=== PATIENT | male | born 1965 | race Caucasian/White ===

== ENCOUNTER 2016-05-01 08:32 | Inpatient (IN) | payer MEDICARE, OTHER ==
[~2016-05-01] VITALS: Ht 175.3 cm; Wt 91.5 kg
[~2016-05-01 08:32] MED LIST: CITA40 PO; QUET100 PO
[2016-05-01 08:34] VITALS: BP 171/79; PULSE 110; RESP 16; TEMP 97.9; O2SAT 95
[2016-05-01] MEDS ORDERED: TRAZ50TA12 PO (08:48)
[2016-05-01 09:26] LABS: AUTOMATED NEUTROPHIL # 5.3 TH/MM3 (1.8-7.7); BASOPHIL # 0.1 TH/MM3 (0-0.2); BASOPHIL % 0.8 % (0.0-2.0); EOSINOPHIL % 0.6 % (0.0-4.0); HEMATOCRIT 42.4 % (39.0-51.0); HEMO FLAGS DIFF FINAL; LYMPHOCYTE # 1.7 TH/MM3 (1.0-4.8); MEAN CELL VOLUME 94.7 FL (80.0-100.0); MEAN CORPUSCULAR HGB CONC 35.9 % (32.0-36.0); MONO % 8.5 % (0.0-8.0); NEUT % 68.1 % (16.0-70.0); PLATELET COUNT 184 TH/MM3 (150-450); RED BLOOD COUNT 4.48 MIL/MM3 (4.50-5.90); RED CELL DISTRIBUTION WIDTH 13.2 % (11.6-17.2); WHITE BLOOD COUNT 7.8 TH/MM3 (4.0-11.0)
--- NOTE | 2016-05-01 09:33 | PD ---
HPI Chief Complaint: Psychiatric Symptoms Time Seen by Provider: 09:08 Travel History International Travel<30 days: No Contact w/Intl Traveler<30days: No Traveled to known affect area: No History of Present Illness HPI 50-year-old male presents to the emergency department complaining of increased depression symptoms. States he's been feeling suicidal. He has a plan to shoot himself. He does not have access to firearms. He states he's been feeling worse in the past week or 2. His previous admissions for major depression and a previous diagnosis of schizoaffective disorder. He's been drinking alcohol over the weekend but does not drink daily. He does smoke marijuana. No recent illnesses or injuries.. Her somatic complaints are some dental pain. History Past Medical History Narrative Medical COPD Hypertension GERD Depression, schizoaffective disorder Tetanus Vaccination: Unknown Social History Alcohol Use: Yes (12PK (ONCE EVERY 30 DAY)) Tobacco Use: Yes (1.5 PPK) Allergies-Medications (Allergen,Severity, Reaction): Coded Allergies: Penicillin (Verified Allergy, Severe, CHILDHOOD - DOESN'T REMEMBER, ) *MDRO Multi-Drug Resistant Organism (Verified Adverse Reaction, Unknown, ) MRSA 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 Reported Meds & Prescriptions Reported Meds & Active Scripts Active Reported Trazodone (Trazodone HCl) 50 Mg Tab 50 Mg PO HS Review of Systems Except as stated in HPI: all other systems reviewed are Neg Physical Exam Narrative GENERAL: 50-year-old man, solemn but no acute distress. SKIN: Warm and dry. HEAD: Atraumatic. Normocephalic. CARDIOVASCULAR: Regular rate and rhythm. No murmur appreciated. RESPIRATORY: No accessory muscle use. Clear to auscultation. Breath sounds equal bilaterally. GASTROINTESTINAL: Abdomen soft, non-tender, nondistended. Hepatic and splenic margins not palpable. MUSCULOSKELETAL: No obvious deformities. No edema. NEUROLOGICAL: Awake and alert. No obvious cranial nerve deficits. Motor grossly within normal limits. Normal speech. PSYCHIATRIC: Appropriate mood and affect; insight and judgment normal. Data Data Last Documented VS Vital Signs Date Time Temp Pulse Resp B/P Pulse Ox O2 Delivery O2 Flow Rate FiO2 05/01/16 08:34 97.9 110 16 171/79 95 Room Air Orders Complete Blood Count With Diff (05/01/16 08:57) Comprehensive Metabolic Panel (05/01/16 08:57) Drug Screen, Random Urine (05/01/16 08:57) Psych Screen (05/01/16 08:57) Labs Laboratory Tests Test 05/01/16 09:00 White Blood Count 7.8 TH/MM3 Red Blood Count 4.48 MIL/MM3 Hemoglobin 15.2 GM/DL Hematocrit 42.4 % Mean Corpuscular Volume 94.7 FL Mean Corpuscular Hemoglobin 34.0 PG Mean Corpuscular Hemoglobin 35.9 % Concent Red Cell Distribution Width 13.2 % Platelet Count 184 TH/MM3 Mean Platelet Volume 8.7 FL Neutrophils (%) (Auto) 68.1 % Lymphocytes (%) (Auto) 22.0 % Monocytes (%) (Auto) 8.5 % Eosinophils (%) (Auto) 0.6 % Basophils (%) (Auto) 0.8 % Neutrophils # (Auto) 5.3 TH/MM3 Lymphocytes # (Auto) 1.7 TH/MM3 Monocytes # (Auto) 0.7 TH/MM3 Eosinophils # (Auto) 0.0 TH/MM3 Basophils # (Auto) 0.1 TH/MM3 CBC Comment DIFF FINAL Differential Comment MDM Medical Decision Making Medical Screen Exam Complete: Yes Emergency Medical Condition: Yes Differential Diagnosis Depression, substance abuse, alcohol, other Narrative Course Medical decision-making INITIAL: 50-year-old man presents to the emergency department complaining of increased depression and suicidality. Looks well. Patient is medically clear for psychiatric evaluation. Mental health screening discussed with the patient. Psychiatric screen ordered. Peter Cage MD May 01, 2016 09:32
[2016-05-01 09:39] LABS: ANION GAP 10 MEQ/L (5-15); AST (GOT) 29 U/L (15-37); BICARBONATE 24.3 MEQ/L (21.0-32.0); BLOOD UREA NITROGEN 17 MG/DL (7-18); CHLORIDE 106 MEQ/L (98-107); GLOMERULAR FILTRATION RATE 101 ML/MIN (>89); POTASSIUM 3.9 MEQ/L (3.5-5.1); SODIUM (NA) 140 MEQ/L (136-145)
[2016-05-01 09:43] LABS: ALKALINE PHOSPHATASE 68 U/L (45-117); ALT (GPT) 33 U/L (12-78); TOTAL BILIRUBIN ADULT 0.3 MG/DL (0.2-1.0)
[2016-05-01 09:51] LABS: AMPHETAMINE, URINE NEG (NEG); BARBITURATES, URINE NEG (NEG); COCAINE, URINE NEG (NEG)
[2016-05-01 10:34] VITALS: BP 152/72; PULSE 93; RESP 18; TEMP 98.7; O2SAT 96
[2016-05-01] MEDS ORDERED: ALUMINUM/MAGNESIUM/SIMETH 30 ML CUP PO PRN (13:30)
[2016-05-01] MEDS ORDERED: BENZTROPINE MESYLATE 1 MG TAB PO PRN (13:30)
[2016-05-01] MEDS ORDERED: MAGNESIUM HYDROXIDE SUSP 30 ML CUP PO PRN (13:30)
[2016-05-01] MEDS ORDERED: LORazepam 2 MG/ML VIAL IM PRN ×5 (13:30→13:45)
[2016-05-01] MEDS ORDERED: BENZTROPINE MESYLATE 2 MG/2 ML VIAL IM PRN (13:30)
[2016-05-01] MEDS ORDERED: FLUMAZENIL 0.5 MG/5 ML VIAL IV PUSH PRN (13:45)
[2016-05-01] MEDS ORDERED: LORazepam 2 MG TAB PO PRN (13:45)
[2016-05-01] MEDS ORDERED: LORazepam 1 MG TAB PO PRN (13:45)
[2016-05-01] MEDS ORDERED: cloNIDine HCL 0.1 MG TAB PO PRN (13:45)
--- NOTE | 2016-05-01 14:13 | MH ---
cc: RAJENDRA DEMARCO MD DATE OF ADMISSION: 05/01/2016 ADMISSION DIAGNOSES 1. Schizoaffective disorder, depressive type, acute exacerbation. LEGAL STATUS The patient is capacitated to consent for voluntary psychiatric admission and also to consent for medications. HISTORY OF PRESENT ILLNESS Mr. Lamar is a 50-year-old male with a history of schizoaffective disorder who presents on a voluntary basis to the ED for psychiatric evaluation complaining of increasing depression and suicidal ideation. Reviewing the electronic medical record, I note the patient was admitted most recently under Dr. Meade in January of 2016 and was discharged on Celexa and Seroquel. The patient is seen and examined. Case was discussed with nurse in the J pod. Chart reviewed. On my examination today, the patient reports that after leaving the hospital in January he neglected to follow up with his outpatient psychiatrist. He said he eventually ran out of his psychotropic medications and stopped taking them. He says that in the absence of psychotropics his mood has worsened. "I really let myself sink into a depression. Life's been pretty lonely since she ." He is referring in this case to his who apparently 4 years ago and the anniversary of her passing is in a week. He says he has been eating fairly well but his sleep is somewhat disrupted. He endorses occasional feelings of hopelessness and anhedonia. He endorses suicidal ideation with plan to overdose on medications, although he denies any urge to hurt himself on the inpatient psychiatric unit. He does complain of some auditory hallucinations that he describes as "a whiney pitch, that if I listen long enough I can make out words." He says the words are more like screams and do not say anything specific. No other hallucinatory material. No delusional beliefs. No hypomanic or manic symptoms. The remainder of the psychiatric ROS is negative. PAST PSYCHIATRIC HISTORY The patient reports a prior diagnosis of schizoaffective disorder. He follows at [facility]. His most recent psychiatric admission was the one I had mentioned under Dr. Meade. He endorses a history of suicide attempt by overdose in the past. He says that the Seroquel, Celexa combination worked pretty well but he was not entirely satisfied with the Seroquel and might like to consider an alternative agent. FAMILY HISTORY The patient reports that his mother struggled with some sort of mental illness. Otherwise, the patient denies. CHEMICAL DEPENDENCY HISTORY The patient admits to occasional use of cannabis a couple of times a month. He also smokes a pack a day of cigarettes. He denies any other alcohol or substance use. SOCIAL HISTORY The patient reports that he lives alone. He has two adult children with whom he has some contact. He also has some grandchildren he says. He denies any or legal history. Denies any access to guns or firearms. He is a [employer]. He has some college education. 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 PAST MEDICAL HISTORY The patient reports a history of hypertension for which he takes no medications. REVIEW OF SYSTEMS No reported headache, vision or hearing changes, chest pain, shortness of breath, bowel or bladder issues. No other physical complaints. ALLERGIES Includes allergies to PENICILLIN. PHYSICAL EXAMINATION VITAL SIGNS: Temperature is 98.7, pulse is 93, respirations 18, blood pressure 152/72, pulse oximetry 96% on room air. Physical examination was completed in the emergency room by the ER staff and the patient was medically cleared. On my examination today, the patient appears to be in no acute physical distress. No abnormal motor movements noted. No signs of withdrawal noted. Labs reviewed. The patient's CBC is unremarkable. CMP is unremarkable. Toxicology is positive for cannabinoids and alcohol level was not obtained. Lipid panel and hemoglobin A1c were obtained during the patient's recent psychiatric admission back in January. MENTAL STATUS EXAMINATION The patient is in hospital gown. He is well-groomed. He is awake, alert and oriented x3. No abnormal motor movements noted. Speech is within normal limits for rate, tone and volume. Language and fund of knowledge seem adequate and appropriate for age. Mood is depressed and affect is restricted. Thought process linear. No loosening of associations. No evident delusions. Auditory phenomena as detailed above. No other hallucinations. Endorses suicidal ideation as noted above. No reported urge to hurt himself on the inpatient psychiatric unit. No homicidal ideation. Insight and judgment are fair. ASSESSMENT/PLAN This is a 50-year-old male with a history of schizoaffective disorder, most likely of the depressive type as the patient denies any history of true manic or hypomanic episodes. He presented to the ED voluntarily with complaints of depression and suicidal ideation. The patient echoes these complaints to me and reports that he has been feeling worse in the setting of medication non-adherence. Acute stressor may be the upcoming anniversary of his 's passing. In any event, the patient requires psychiatric admission at this time for safety, observation and stabilization. Admit inpatient. Voluntary status. No need for any updated labs as the patient has had recent hemoglobin A1c and lipid panel. Other laboratories were normal. I will check an alcohol level, but I do not suspect that alcohol is the cause of the patient's elevated blood pressure and heart rate at this time. I will start patient on CIWA with Ativan as a precaution and add thiamine and folate. In place of the patient's Seroquel, as he felt this did not completely resolve his symptoms, I will start the patient on some Latuda with dinner. I have discussed the risks and benefits of this medication with the patient. I will resume the patient's Celexa at a reduced dose given non-adherence. Ativan as needed for anxiety, Cogentin as needed for EPS, trazodone as needed for sleep. Vitals every shift. Counselor to see. Disposition planning. ESTIMATED LENGTH OF STAY 7-9 days. Rajendra Demarco DC/SIERRA /1:27 PM /1:58 PM WILL
[2016-05-01 16:01] VITALS: BP 163/80; PULSE 82; RESP 18; O2SAT 96
[2016-05-01] MEDS: LURASIDONE 40 MG TAB PO SCH (18:00)
[2016-05-01] MEDS: LORazepam 1 MG TAB PO PRN (19:09)
[2016-05-02 06:08] VITALS: BP 139/92; PULSE 74; RESP 18; TEMP 97.9
[2016-05-02] MEDS: REMOVE OLD PATCH T-DERMAL SCH (09:00)
[2016-05-02] MEDS: FOLIC ACID 1 MG TAB PO SCH (09:05)
[2016-05-02] MEDS: CITALOPRAM HYDROBROMIDE 20 MG TAB PO SCH (09:05)
[2016-05-02] MEDS: THIAMINE HCL 100 MG TAB PO SCH (09:05)
[2016-05-02] MEDS: NICOTINE 21 MG/24 HR PATCH T-DERMAL SCH (09:06)
[2016-05-02] MEDS: LORazepam 1 MG TAB PO PRN ×2 (09:09→16:20)
--- NOTE | 2016-05-02 11:57 | HHI.PYPN ---
Subjective Remarks Patient seen and examined with a counselor. Chart reviewed. Case discussed in treatment team. On my examination today, patient reports that his mood is starting to lift somewhat. He slept fairly well overnight. He denies suicidal ideation now but is worried about slipping back into his suicidal ideation in an outpatient setting. No AVH reported. Denies side effects from medications. Review of Systems Other No physical complaints today. Objective Alert: Yes [place]: Person (O x 3) Mood: Depressed Affect: Blunted Memory Intact: Comment (intact on clinical exam) Hallucinations: Other (no AVH) Delusions: No Delusion Type: Other (no delusions) Suicidal: Ideation (no SI) Homicidal: Ideation (no HI) Insight/Judgement Fair Remarks No motoric abnormalities noted. No signs of withdrawal, and patient has required no Ativan for withdrawal. Labs Labs reviewed. No new labs. Vitals/IOs Vital Signs Date Time Temp Pulse Resp B/P Pulse Ox O2 Delivery O2 Flow Rate FiO2 05/02/16 06:08 97.9 74 18 139/92 05/01/16 16:01 96 Room Air Assessment & Plan Problem List: (1) Schizoaffective disorder ICD Code: F25.9 Assessment & Plan Continue Celexa and Latuda as ordered. Plan to make further medication adjustments tomorrow, most likely titrate patient's Latuda. Continue other medications and care as ordered. Justification for Cont. Inpt. Monitoring for any impairments in safety. Risk for decompensation. Discharge Planning Pending psychiatric stabilization Request HC Surrog/Guard Advoc?: No Problem Qualifiers (1) Schizoaffective disorder: Qualified Code: F25.1 - Schizoaffective disorder, depressive type Rajendra Demarco MD May 02, 2016 11:57
[2016-05-02] MEDS: LURASIDONE 40 MG TAB PO SCH (17:57)
[2016-05-02] MEDS: ACETAMINOPHEN 325 MG TAB PO PRN (18:31)
[2016-05-02 20:00] VITALS: BP 125/76; PULSE 85; RESP 18; TEMP 96.8
[2016-05-02] MEDS: traZODone HCL 50 MG TAB PO PRN (21:25)
[2016-05-03 06:08] VITALS: BP 119/62; PULSE 86; RESP 18; TEMP 99; O2SAT 95
[2016-05-03] MEDS: FOLIC ACID 1 MG TAB PO SCH (08:56)
[2016-05-03] MEDS: THIAMINE HCL 100 MG TAB PO SCH (08:56)
[2016-05-03] MEDS: CITALOPRAM HYDROBROMIDE 20 MG TAB PO SCH (08:56)
[2016-05-03] MEDS: NICOTINE 21 MG/24 HR PATCH T-DERMAL SCH (08:56)
[2016-05-03] MEDS: REMOVE OLD PATCH T-DERMAL SCH (08:56)
[2016-05-03] MEDS: LORazepam 1 MG TAB PO PRN ×2 (08:58→16:33)
[2016-05-03] MEDS: ACETAMINOPHEN 325 MG TAB PO PRN ×2 (13:35→21:42)
--- NOTE | 2016-05-03 15:16 | HHI.PYPN ---
Subjective Remarks Patient seen and examined. Chart reviewed. Case discussed with nursing staff. On my examination today, the patient denies any AVH. He has heard about depression support groups and grief counseling that he might attend after discharge and is interested in this. Mood remains somewhat depressed and he continues to describe vague suicidal ideation noting "not being alive seems like a mathematical possibility." No reported urge to hurt himself on the inpatient unit. Says that he stopped taking his medications last time and part because he had several friends that said that he could remain psychiatrically well using just diet and exercise but the primary issue was not following up with outpatient psychiatry. Denies side effects from medications. Agreeable to titration of his Celexa. Review of Systems Other No physical complaints today Objective Alert: Yes [place]: Person (once again O x 3) Mood: Depressed Affect: Blunted Memory Intact: Comment (remains intact) Hallucinations: Other (no AVH) Delusions: No Delusion Type: Other (no evident delusional material) Suicidal: Ideation (vague SI, more like passive thoughts of really. No reported urge to hurt himself on the inpatient psychiatric unit.) Homicidal: Ideation (no HI) Insight/Judgement Fair Remarks No abnormal motor movements noted. Speech within normal limits. Thought process linear. Labs Labs reviewed. No new labs. Vitals/IOs Vital Signs Date Time Temp Pulse Resp B/P Pulse Ox O2 Delivery O2 Flow Rate FiO2 05/03/16 06:08 99.0 86 18 119/62 95 05/01/16 16:01 Room Air Assessment & Plan Problem List: (1) Schizoaffective disorder ICD Code: F25.9 Assessment & Plan Titrate Celexa. Continue what to do as ordered and although we could consider titrating this as well in succeeding days. He has not required any Ativan for withdrawal; to consider discontinuing CIWA protocol tomorrow. Continue other medications include as ordered. Justification for Cont. Inpt. Monitoring for impairments in safety. Medication adjustments. Risk for decompensation. Discharge Planning Plan to refer for grief counseling and depression support group. Pending psychiatric stabilization. Request HC Surrog/Guard Advoc?: No Problem Qualifiers (1) Schizoaffective disorder: Qualified Code: F25.1 - Schizoaffective disorder, depressive type Rajendra Demarco MD May 03, 2016 15:16
[2016-05-03] MEDS: LURASIDONE 40 MG TAB PO SCH (16:33)
[2016-05-03] MEDS: traZODone HCL 50 MG TAB PO PRN (21:41)
[2016-05-04] MEDS: LORazepam 1 MG TAB PO PRN ×3 (05:21→17:39)
[2016-05-04] MEDS: ACETAMINOPHEN 325 MG TAB PO PRN ×2 (05:21→11:13)
[2016-05-04 06:26] VITALS: BP 115/75; PULSE 91; RESP 16; TEMP 97.5
[2016-05-04] MEDS: THIAMINE HCL 100 MG TAB PO SCH (08:51)
[2016-05-04] MEDS: FOLIC ACID 1 MG TAB PO SCH (08:51)
[2016-05-04] MEDS: CITALOPRAM HYDROBROMIDE 20 MG TAB PO SCH (08:53)
[2016-05-04] MEDS: NICOTINE 21 MG/24 HR PATCH T-DERMAL SCH (09:00)
[2016-05-04] MEDS: REMOVE OLD PATCH T-DERMAL SCH (09:00)
--- NOTE | 2016-05-04 16:14 | HHI.PYPN ---
Subjective Remarks Patient seen and examined. Chart reviewed. Case discussed with nursing staff. No problematic behaviors to note. Patient reports that his mood is improving but still remains depressed. He denies any AVH. He is somewhat hopeful about working with his sister to find alternative housing. He denies any side effects from medications. We discuss a plan for titrating his Latuda over the weekend and he is in agreement with this. He requests that his trazodone be scheduled instead of as needed. Review of Systems Other No physical complaints today. No reported symptoms of any withdrawal. Objective Alert: Yes [place]: Person (O x 3) Mood: Depressed (improving) Affect: Blunted (more full and reactive) Memory Intact: Comment (intact) Hallucinations: Other (none) Delusions: No Delusion Type: Other (no delusions) Suicidal: Ideation (no SI) Homicidal: Ideation (no HI) Insight/Judgement Fair Remarks Thought process linear. No signs of withdrawal. Labs Labs reviewed. No new labs. Vitals/IOs Vital Signs Date Time Temp Pulse Resp B/P Pulse Ox O2 Delivery O2 Flow Rate FiO2 05/04/16 06:26 97.5 91 16 115/75 05/03/16 06:08 95 05/01/16 16:01 Room Air Assessment & Plan Problem List: (1) Schizoaffective disorder ICD Code: F25.9 Assessment & Plan Continue current psychotropics as ordered except that I will schedule patient's Latuda. Discontinue CIWA as there is no evidence of withdrawal. Continue other medications and care as ordered. Justification for Cont. Inpt. Monitoring for safety. Risk for decompensation pending psychiatric stabilization. Discharge Planning Pending psychiatric stabilization. Request HC Surrog/Guard Advoc?: No Problem Qualifiers (1) Schizoaffective disorder: Qualified Code: F25.1 - Schizoaffective disorder, depressive type Rajendra Demarco MD May 04, 2016 16:14
[2016-05-04] MEDS: LURASIDONE 40 MG TAB PO SCH (17:33)
[2016-05-04 18:00] VITALS: BP 144/69; PULSE 110; RESP 16; TEMP 97.4; O2SAT 97
[2016-05-05] MEDS: traZODone HCL 50 MG TAB PO PRN ×2 (00:41→19:57)
[2016-05-05] MEDS: LORazepam 1 MG TAB PO PRN ×3 (05:18→19:57)
[2016-05-05 06:00] VITALS: BP 125/73; PULSE 72; RESP 16; TEMP 98
[2016-05-05] MEDS: REMOVE OLD PATCH T-DERMAL SCH (09:00)
[2016-05-05] MEDS: NICOTINE 21 MG/24 HR PATCH T-DERMAL SCH (09:44)
[2016-05-05] MEDS: FOLIC ACID 1 MG TAB PO SCH (09:44)
[2016-05-05] MEDS: THIAMINE HCL 100 MG TAB PO SCH (09:44)
[2016-05-05] MEDS: CITALOPRAM HYDROBROMIDE 20 MG TAB PO SCH (09:44)
[2016-05-05] MEDS: ACETAMINOPHEN 325 MG TAB PO PRN ×2 (13:48→19:58)
--- NOTE | 2016-05-05 14:54 | HHI.PYPN ---
Subjective Remarks Patient seen and examined. Chart reviewed. Case discussed with nursing staff. On my examination today, patient reports that his mood is slowly lifting. No SI or HI voiced. Denies side effects from medications. Patient reports that he has been engaging in the psychotherapeutic activities and groups on the unit and feels that he is obtaining benefit from these. I discuss with patient strategies for making behavioral change including setting concrete, achievable goals and making an action plan to achieve these goals. Review of Systems Other Complains of some dental pain but no other physical complaints Objective Alert: Yes [place]: Person (once again O x 3) Mood: Depressed (continues to improve) Affect: Other (fairly full and reactive) Memory Intact: Comment (intact) Hallucinations: Other (no AVH) Delusions: No Delusion Type: Other (no evident delusions) Suicidal: Ideation (no SI voiced) Homicidal: Ideation (no HI voiced) Insight/Judgement Fair Remarks No motoric abnormalities noted Labs Labs reviewed. No new labs. Vitals/IOs Vital Signs Date Time Temp Pulse Resp B/P Pulse Ox O2 Delivery O2 Flow Rate FiO2 05/05/16 06:00 98.0 72 16 125/73 05/04/16 18:00 97 05/01/16 16:01 Room Air Intake and Output 05/04/16 05/04/16 05/05/16 08:00 16:00 00:00 Intake Total 360 ml Balance 360 ml Assessment & Plan Problem List: (1) Schizoaffective disorder ICD Code: F25.9 Assessment & Plan Continue current psychotropics as ordered. I will add some Orajel for the dental pain. Continue other medications and care as ordered. Justification for Cont. Inpt. Risk for decompensation Discharge Planning Pending psychiatric stabilization Request HC Surrog/Guard Advoc?: No Problem Qualifiers (1) Schizoaffective disorder: Qualified Code: F25.1 - Schizoaffective disorder, depressive type Rajendra Demarco MD May 05, 2016 14:54
[2016-05-05] MEDS: LURASIDONE 40 MG TAB PO SCH (17:22)
[2016-05-05 18:55] VITALS: BP 136/61; PULSE 80; RESP 18; O2SAT 95
[2016-05-06 05:46] VITALS: BP 122/71; PULSE 72; RESP 18; TEMP 97.9
[2016-05-06] MEDS: REMOVE OLD PATCH T-DERMAL SCH (08:51)
[2016-05-06] MEDS: NICOTINE 21 MG/24 HR PATCH T-DERMAL SCH (08:51)
[2016-05-06] MEDS: LORazepam 1 MG TAB PO PRN ×3 (08:52→21:04)
[2016-05-06] MEDS: THIAMINE HCL 100 MG TAB PO SCH (08:52)
[2016-05-06] MEDS: CITALOPRAM HYDROBROMIDE 20 MG TAB PO SCH (08:52)
[2016-05-06] MEDS: FOLIC ACID 1 MG TAB PO SCH (08:52)
[2016-05-06] MEDS: ACETAMINOPHEN 325 MG TAB PO PRN ×3 (08:52→20:26)
[2016-05-06] MEDS: BENZOCAINE 7.5% ORAL GEL 9.4 GM TUBE OROPHARYNG PRN (15:36)
--- NOTE | 2016-05-06 17:57 | HHI.PYPN ---
Subjective Remarks Pt seen and discussed with staff. He reports that today mood is improved and he is having a good day. No SI/HI. Tolerating medications without side effects. He denies SI/HI. Objective Alert: Yes [place]: Person, Place, Date Mood: Calm Affect: Restricted, Other (fairly full and reactive) Memory Intact: Comment (intact) Hallucinations: Other (no AVH) Delusions: No Delusion Type: Other (no evident delusions) Suicidal: Ideation (no SI voiced) Homicidal: Ideation (no HI voiced) Insight/Judgement fair Vitals/IOs Vital Signs Date Time Temp Pulse Resp B/P Pulse Ox O2 Delivery O2 Flow Rate FiO2 05/06/16 05:46 97.9 72 18 122/71 05/05/16 18:55 95 Assessment & Plan Problem List: (1) Schizoaffective disorder ICD Code: F25.9 Assessment & Plan Pt improving. Continue current tx plan. Estimated LOS: days Justification for Cont. Inpt. risk of decompensation Request HC Surrog/Guard Advoc?: No Problem Qualifiers (1) Schizoaffective disorder: Qualified Code: F25.1 - Schizoaffective disorder, depressive type Jael Currie MD May 06, 2016 17:57
[2016-05-06] MEDS: LURASIDONE 40 MG TAB PO SCH (18:02)
[2016-05-06] MEDS: traZODone HCL 50 MG TAB PO PRN (20:25)
[2016-05-06 21:41] VITALS: BP 124/73; PULSE 81; RESP 18; TEMP 98; O2SAT 95
[2016-05-07 06:00] VITALS: BP 139/80; PULSE 71; RESP 18; TEMP 99
[2016-05-07] MEDS: REMOVE OLD PATCH T-DERMAL SCH (08:06)
[2016-05-07] MEDS: FOLIC ACID 1 MG TAB PO SCH (08:06)
[2016-05-07] MEDS: NICOTINE 21 MG/24 HR PATCH T-DERMAL SCH (08:06)
[2016-05-07] MEDS: CITALOPRAM HYDROBROMIDE 20 MG TAB PO SCH (08:06)
[2016-05-07] MEDS: THIAMINE HCL 100 MG TAB PO SCH (08:06)
[2016-05-07] MEDS: LORazepam 1 MG TAB PO PRN ×3 (10:06→21:00)
[2016-05-07] MEDS: ACETAMINOPHEN 325 MG TAB PO PRN (10:07)
[2016-05-07] MEDS: LURASIDONE 40 MG TAB PO SCH (16:55)
--- NOTE | 2016-05-07 19:05 | HHI.PYPN ---
Subjective Remarks Pt seen and discussed with staff. He reports that mood continues to improve and he is having a good day. He is active in milieu activities. Anxiety is decreasing. No medication side effects. Objective Alert: Yes [place]: Person, Place, Date Mood: Calm Affect: Restricted, Other (fairly full and reactive) Memory Intact: Comment (intact) Hallucinations: Other (no AVH) Delusions: No Delusion Type: Other (no evident delusions) Suicidal: Ideation (no SI voiced) Homicidal: Ideation (no HI voiced) Insight/Judgement poor Vitals/IOs Vital Signs Date Time Temp Pulse Resp B/P Pulse Ox O2 Delivery O2 Flow Rate FiO2 05/07/16 06:00 99.0 71 18 139/80 05/06/16 21:41 95 Assessment & Plan Problem List: (1) Schizoaffective disorder ICD Code: F25.9 Assessment & Plan Continue current tx plan. Estimated LOS: days Justification for Cont. Inpt. risk of decopensation Request HC Surrog/Guard Advoc?: No Problem Qualifiers (1) Schizoaffective disorder: Qualified Code: F25.1 - Schizoaffective disorder, depressive type Jael Currie MD May 07, 2016 19:05
[2016-05-07 21:00] VITALS: BP 141/80; PULSE 78; RESP 20; TEMP 97.1; O2SAT 97
[2016-05-07 21:06] VITALS: BP 174/89; PULSE 82; TEMP 98.9; O2SAT 95
[2016-05-07] MEDS: BENZOCAINE 7.5% ORAL GEL 9.4 GM TUBE OROPHARYNG PRN (21:26)
[2016-05-08] MEDS: LORazepam 1 MG TAB PO PRN ×2 (02:39→13:23)
[2016-05-08 05:30] VITALS: BP 118/65; PULSE 60; RESP 18; TEMP 98
[2016-05-08] MEDS: NICOTINE 21 MG/24 HR PATCH T-DERMAL SCH (08:55)
[2016-05-08] MEDS: REMOVE OLD PATCH T-DERMAL SCH (08:55)
[2016-05-08] MEDS: FOLIC ACID 1 MG TAB PO SCH (08:56)
[2016-05-08] MEDS: THIAMINE HCL 100 MG TAB PO SCH (08:56)
[2016-05-08] MEDS: CITALOPRAM HYDROBROMIDE 20 MG TAB PO SCH (08:56)
[2016-05-08] MEDS ORDERED: FOLI1TAB4 PO (15:34)
[2016-05-08] MEDS ORDERED: LURA40 PO (15:34)
[2016-05-08] MEDS ORDERED: VITA100T2 PO (15:34)
[2016-05-08] MEDS ORDERED: CELE20TA PO (15:34)
--- NOTE | 2016-05-08 15:34 | HHI.DS ---
Psychiatry Discharge Summary Inpatient Psychiatric care?: Yes Advance Directive: No Mental Health AdvanceDirective: No Health Care Proxy: No Admission Admission Date May 01, 2016 at 13:23 Admission Diagnosis: (1) Schizoaffective disorder ICD Code: F25.9 Brief History Mr. Lamar is a 50-year-old male with a history of schizoaffective disorder who presents on a voluntary basis to the ED for psychiatric evaluation complaining of increasing depression and suicidal ideation. Reviewing the electronic medical record, I note the patient was admitted most recently under Dr. Meade in January of 2016 and was discharged on Celexa and Seroquel. The patient is seen and examined. Case was discussed with nurse in the J pod. Chart reviewed. On my examination today, the patient reports that after leaving the hospital in January he neglected to follow up with his outpatient psychiatrist. He said he eventually ran out of his psychotropic medications and stopped taking them. He says that in the absence of psychotropics his mood has worsened. "I really let myself sink into a depression. Life's been pretty lonely since she ." He is referring in this case to his who apparently 4 years ago and the anniversary of her passing is in a week. He says he has been eating fairly well but his sleep is somewhat disrupted. He endorses occasional feelings of hopelessness and anhedonia. He endorses suicidal ideation with plan to overdose on medications, although he denies any urge to hurt himself on the inpatient psychiatric unit. He does complain of some auditory hallucinations that he describes as "a whiney pitch, that if I listen long enough I can make out words." He says the words are more like screams and do not say anything specific. No other hallucinatory material. No delusional beliefs. No hypomanic or manic symptoms. The remainder of the psychiatric ROS is negative. Tobacco Use In Past 30 Days: 5 or More Cigarettes/Day Alcohol Use: 4 or More Times Per Week Hospital Course Patient was admitted to a locked, inpatient psychiatric unit. Appropriate precautions were in place throughout patient's hospital stay. Patient was seen and examined daily on the unit by psychiatry and also visited by counselor. Medications were adjusted. Patient tolerated medications well without side effects. Patient had improvement in his presenting psychiatric symptomatology during the course of his hospital stay. There was no evidence of any suicidal or homicidal behavior on the inpatient unit. Patient remained in good behavioral control and was medication compliant. Reviewing the chart I note that the patient is eating and sleeping well. On the day of discharge: Patient seen and examined. Chart reviewed. Case discussed with nursing staff. No problematic behaviors to note. Patient reports that he feels improved today and requests discharge from the inpatient psychiatric unit. Patient feels that his mood is improved versus admission, and he denies any suicidal or homicidal thoughts. He denies any audiovisual hallucinations, and I can elicit no delusional beliefs. He is tolerating psychotropics well without side effects. He has no physical complaints. He has no complaints of withdrawal symptoms. He says that his plan is to get reconnected to Alcoholics Anonymous as a source of support in the community. He is also agreeable to pursuing psychiatric follow-up for medication management on an outpatient basis. Weighing the acute , chronic, and protective factors and based on the available evidence, I painter aircraft to a reasonable degree of medical certainty that the patient is at low imminent risk of harm to self or others from a mental illness as defined under the [place] act and his level of function is adequate for outpatient care. Patient is to be discharged today in stable condition with psychiatric follow-up as arranged by counselor. Patient is also to follow-up with primary care. I have encouraged the patient to remain abstinent from substances of abuse. I counseled the patient to return to the psychiatric emergency room for any concerning psychiatric symptoms as part of a general safety plan. Results Blood Pressure 118 / 65 Vital Signs Date Time Temp Pulse Resp B/P Pulse Ox O2 Delivery O2 Flow Rate FiO2 05/08/16 05:30 98.0 60 18 118/65 05/07/16 21:06 95 Item Value Date Time White Blood Count 7.8 TH/MM3 05/01/16 0900 Hemoglobin 15.2 GM/DL 05/01/16 09 Platelet Count 184 TH/MM3 05/01/16 09 Sodium Level 140 MEQ/L 05/01/16 09 Potassium Level 3.9 MEQ/L 05/01/16 09 Chloride Level 106 MEQ/L 05/01/16 09 Carbon Dioxide Level 24.3 MEQ/L 05/01/16 09 Blood Urea Nitrogen 17 MG/DL 05/01/16 0900 Creatinine 0.81 MG/DL 05/01/16 0900 Aspartate Amino Transf (AST/SGOT) 29 U/L 05/01/16 0900 Alanine Aminotransferase (ALT/SGPT) 33 U/L 05/01/16 0900 Alkaline Phosphatase 68 U/L 05/01/16 0900 Urine Cannabinoids Screen POS H 05/01/16 0900 Ethyl Alcohol Level 43 MG/DL H 05/01/16 0900 Summary of Procedures None done Imaging None done Pending results at discharge: No Medications # of Antipsychotic meds at D/C: 1 Approp Antipsych med options 1 - Minimum of three failed multiple trials of monotherapy. 2 - Documented plan to taper to monotherapy due to previous use of multiple meds OR cross-taper in progress at D/C. 3 - Documentation of augmentation of Clozapine. 4 - Justification other than those listed in allowable values 1-3, document here : Discharge Discharge Date: May 08, 2016 Discharge Diagnosis: (1) Schizoaffective disorder Diagnosis: Principal (stabilized) ICD Code: F25.9 GAF on discharge is 60 Mental Status Exam at Disch Patient is casually dressed. He is well groomed. He is awake and alert and oriented 3. No evidence of delirium. No abnormal motor movements noted. No signs of withdrawal noted. Speech is within normal limits for rate, tone and volume. Language and fund of knowledge seem adequate and appropriate for age. Mood is improved versus admission and affect is full and reactive. Thought process linear. No loosening of associations. No evident delusions. Denies audiovisual hallucinations. Denies suicidal or homicidal ideation. Insight and judgment are fair. Pt Condition on Discharge: Stable Discharge Disposition: Discharge Home Discharge Instructions Diet Instructions: As Tolerated, No Restrictions Activities you can perform: Weight Bearing as Emigdio Scheduled Appointment: as per counselor's notes New Medications: Citalopram (Celexa) 20 Mg Tab 40 MG PO DAILY Mental Health Days 15 Ref 1 TAB Folic Acid (Folate) 1 Mg Tab 1 MG PO DAILY Nutritional Supplement Days 30 Ref 0 TAB Lurasidone (Latuda) 40 Mg Tab 40 MG PO WITH DINNER Mental Health Days 15 Ref 1 TAB Thiamine (Vitamin B-1) 100 Mg Tab 100 MG PO DAILY Nutritional Supplement Days 30 Ref 0 TAB Continued Medications: Trazodone (Trazodone) 50 Mg Tab 50 MG PO HS Control Depression #30 Ref 0 TAB Discharge Time <= 30 minutes Discharge/Advance Care Plan Health Problems: (1) Schizoaffective disorder Goals to promote your health * To prevent worsening of your condition and complications * To maintain your health at the optimal level Directions to meet your goals Take your medications as prescribed Follow your dietary instruction Follow activity as directed Keep your appointments as scheduled Take your immunizations and boosters as scheduled If your symptoms worsen call your PCP, if no PCP go to Urgent Care Center or Emergency Room For 06/11 questions related to your inpatient stay or results of tests pending at discharge, please contact Dr. Rajendra Demarco at Smoking is Dangerous to Your Health. Avoid second hand smoking Problem Qualifiers (1) Schizoaffective disorder: Qualified Code: F25.1 - Schizoaffective disorder, depressive type Rajendra Demarco MD May 08, 2016 15:34
== END 2016-05-08 16:40 | disposition home or self-care (01) | DRG 885 ==
LOC: NEPC 08:32 → NEDA 13:23 → H260 16:49
PROVIDERS: ADMIT Psychiatry & Neurology Psychiatry; ATTEND Psychiatry & Neurology Psychiatry
DX: F25.1 Schizoaffective disorder, depressive type (principal); R45.851 Suicidal ideations; J44.9 Chronic obstructive pulmonary disease, unspecified; I10 Essential (primary) hypertension; Z91.14 Patient's other noncompliance with medication regimen; R45.84 Anhedonia; Z91.5 Personal history of self-harm; F17.210 Nicotine dependence, cigarettes, uncomplicated; Z60.2 Problems related to living alone; Z88.0 Allergy status to penicillin; K08.89 Other specified disorders of teeth and supporting structures; K21.9 Gastro-esophageal reflux disease without esophagitis; F12.90 Cannabis use, unspecified, uncomplicated
CPT/HCPCS: 80053; 80307; 80320; 85025; 99285

== ENCOUNTER 2016-07-10 22:52 | Inpatient (IN) | payer MEDICARE, OTHER ==
[~2016-07-10] VITALS: Ht 170.2 cm; Wt 90.2 kg
[~2016-07-10 22:52] MED LIST changes: +CELE20TA PO; -CITA40 PO; +FOLI1TAB4 PO; +LURA40 PO; -QUET100 PO; +TRAZ50TA12 PO; +VITA100T2 PO
[2016-07-10 22:53] VITALS: BP 163/85; PULSE 78; RESP 16; TEMP 97.5
[2016-07-11] VITALS (8 sets, daily range): BP systolic 132–158; BP diastolic 59–79; PULSE 62–96; RESP 16–20; TEMP 97–98.5; O2SAT 96–100
[2016-07-11] MEDS ORDERED: ACTIVATED CHARCOAL/SORBITOL LIQUID 25 GM/120 ML BTL NG ONE (06:00)
[2016-07-11 06:06] LABS: AUTOMATED NEUTROPHIL # 5.3 TH/MM3 (1.8-7.7); BASOPHIL % 0.5 % (0.0-2.0); EOSINOPHIL # 0.2 TH/MM3 (0-0.4); EOSINOPHIL % 2.8 % (0.0-4.0); HEMATOCRIT 46.4 % (39.0-51.0); HEMO FLAGS DIFF FINAL; LYMPH % 26.2 % (9.0-44.0); LYMPHOCYTE # 2.3 TH/MM3 (1.0-4.8); MEAN CELL VOLUME 95.4 FL (80.0-100.0); MEAN CORPUSCULAR HEMOGLOBIN 34.1 PG (27.0-34.0); MEAN CORPUSCULAR HGB CONC 35.8 % (32.0-36.0); MONO % 9.8 % (0.0-8.0); NEUT % 60.7 % (16.0-70.0); PLATELET COUNT 202 TH/MM3 (150-450); RED BLOOD COUNT 4.86 MIL/MM3 (4.50-5.90); RED CELL DISTRIBUTION WIDTH 13.4 % (11.6-17.2); WHITE BLOOD COUNT 8.7 TH/MM3 (4.0-11.0)
[2016-07-11 06:29] LABS: AMPHETAMINE, URINE NEG (NEG); BARBITURATES, URINE NEG (NEG); COCAINE, URINE NEG (NEG)
[2016-07-11 06:37] LABS: ANION GAP 9 MEQ/L (5-15)
--- NOTE | 2016-07-11 06:38 | PD ---
HPI Chief Complaint: Psychiatric Symptoms Time Seen by Provider: 05:22 Travel History International Travel<30 days: No Contact w/Intl Traveler<30days: No Traveled to known affect area: No History of Present Illness HPI Patient is a 50-year-old male comes in due to suicidal ideation. He has history of depression, and says he has not been taking his medications. He also reports that his girlfriend recently broke up with him. He says he took 12 -14 aspirin tonight and drank some vodka. He complains of some ringing in his years. He denies any other complaints at this time. [facility] Past Medical History Asthma: No Autoimmune Disease: No Bipolar Disorder: Yes Anxiety: Yes Depression: Yes Heart Rhythm Problems: No High Cholesterol: No Chest Pain: No Congestive Heart Failure: No COPD: Yes Diminished Hearing: No Endocrine: No Gastrointestinal Disorders: Yes GERD: Yes Genitourinary: No Hepatitis: No Hiatal Hernia: No Hypertension: Yes Immune Disorder: No Kidney Stones: No Medical other: Yes (GERD) Musculoskeletal: No Neurologic: No Psychiatric: Yes Reproductive: No Respiratory: No Immunizations Current: Yes Renal Failure: No Sickle Cell Disease: No Sleep Apnea: No Thyroid Disease: No Ulcer: No Tetanus Vaccination: Unknown Influenza Vaccination: Yes Past Surgical History Abdominal Surgery: No Body Medical Devices: PIN IN RIGHT ANKLE Cardiac Surgery: No Ear Surgery: No Endocrine Surgery: No Eye Surgery: No Genitourinary Surgery: No Gynecologic Surgery: No Joint Replacement: Yes (R knee) Neurologic Surgery: No Oral Surgery: No Pacemaker: No Thoracic Surgery: No Other Surgery: Yes ( ) Social History Alcohol Use: Yes Tobacco Use: Yes Substance Use: No Allergies-Medications (Allergen,Severity, Reaction): Coded Allergies: Penicillin (Verified Allergy, Severe, CHILDHOOD - DOESN'T REMEMBER, ) *MDRO Multi-Drug Resistant Organism (Verified Adverse Reaction, Unknown, ) MRSA 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 Reported Meds & Prescriptions Reported Meds & Active Scripts Active Folate (Folic Acid) 1 Mg Tab 1 Mg PO DAILY 30 Days Vitamin B-1 (Thiamine HCl) 100 Mg Tab 100 Mg PO DAILY 30 Days Latuda (Lurasidone) 40 Mg Tab 40 Mg PO WITH DINNER 15 Days Celexa (Citalopram Hydrobromide) 20 Mg Tab 40 Mg PO DAILY 15 Days Reported Trazodone (Trazodone HCl) 50 Mg Tab 50 Mg PO HS Review of Systems Except as stated in HPI: all other systems reviewed are Neg General / Constitutional: No: Fever, Chills Eyes: No: Blurred Vision HENT: No: Headaches, Lightheadedness Cardiovascular: No: Chest Pain or Discomfort Respiratory: No: Shortness of Breath Gastrointestinal: No: Nausea, Vomiting, Abdominal Pain Musculoskeletal: No: Myalgias, Edema Skin: No Rash, No Change in Pigmentation Physical Exam Narrative GENERAL: Awake and alert, in no acute distress SKIN: Focused skin assessment warm/dry. HEAD: Atraumatic. Normocephalic. EYES: Pupils equal and round. No scleral icterus. ENT: Mucous membranes pink and moist. NECK: Trachea midline. No JVD. CARDIOVASCULAR: Regular rate and rhythm. No murmur appreciated. RESPIRATORY: No accessory muscle use. Clear to auscultation. Breath sounds equal bilaterally. GASTROINTESTINAL: Abdomen soft, non-tender, nondistended. MUSCULOSKELETAL: No obvious deformities. No clubbing. No cyanosis. No edema. NEUROLOGICAL: Awake and alert. No obvious cranial nerve deficits. Motor grossly within normal limits. Normal speech. PSYCHIATRIC: Appropriate mood and affect; insight and judgment normal. Data Data Last Documented VS Vital Signs Date Time Temp Pulse Resp B/P Pulse Ox O2 Delivery O2 Flow Rate FiO2 07/11/16 07:44 83 16 147/73 100 07/11/16 05:36 98.5 Room Air Orders Complete Blood Count With Diff (07/11/16 05:33) Comprehensive Metabolic Panel (07/11/16 05:33) Psych Screen (07/11/16 05:33) Drug Screen, Random Urine (07/11/16 05:33) Alcohol (Ethanol) (07/11/16 05:33) Salicylates (Aspirin) (07/11/16 05:33) Tylenol (Acetaminophen) (07/11/16 05:33) Electrocardiogram (07/11/16 ) Charcoal Active-Sorbitol Liq (Charcoal A (07/11/16 06:00) Electrocardiogram (07/11/16 07:51) Salicylates (Aspirin) (07/11/16 07:51) Serum Total Iron (Fe) (07/11/16 08:21) Admit Order (Ed Use Only) (07/11/16 09:05) Labs Laboratory Tests Test 07/11/16 07/11/16 07/11/16 05:40 05:45 08:08 White Blood Count 8.7 TH/MM3 Red Blood Count 4.86 MIL/MM3 Hemoglobin 16.6 GM/DL Hematocrit 46.4 % Mean Corpuscular Volume 95.4 FL Mean Corpuscular Hemoglobin 34.1 PG Mean Corpuscular Hemoglobin 35.8 % Concent Red Cell Distribution Width 13.4 % Platelet Count 202 TH/MM3 Mean Platelet Volume 8.9 FL Neutrophils (%) (Auto) 60.7 % Lymphocytes (%) (Auto) 26.2 % Monocytes (%) (Auto) 9.8 % Eosinophils (%) (Auto) 2.8 % Basophils (%) (Auto) 0.5 % Neutrophils # (Auto) 5.3 TH/MM3 Lymphocytes # (Auto) 2.3 TH/MM3 Monocytes # (Auto) 0.9 TH/MM3 Eosinophils # (Auto) 0.2 TH/MM3 Basophils # (Auto) 0.0 TH/MM3 CBC Comment DIFF FINAL Differential Comment Sodium Level 142 MEQ/L Potassium Level 3.5 MEQ/L Chloride Level 106 MEQ/L Carbon Dioxide Level 26.6 MEQ/L Anion Gap 9 MEQ/L Blood Urea Nitrogen 11 MG/DL Creatinine 0.78 MG/DL Estimat Glomerular Filtration 105 ML/MIN Rate Random Glucose 98 MG/DL Calcium Level 9.2 MG/DL Iron Level 86 MCG/DL Total Bilirubin 0.3 MG/DL Aspartate Amino Transf 23 U/L (AST/SGOT) Alanine Aminotransferase 26 U/L (ALT/SGPT) Alkaline Phosphatase 67 U/L Total Protein 7.4 GM/DL Albumin 4.1 GM/DL Salicylates Level 3.6 MG/DL 3.0 MG/DL Acetaminophen Level LESS THAN 2.0 MCG/ML Ethyl Alcohol Level 9 MG/DL Urine Opiates Screen NEG Urine Barbiturates Screen NEG Urine Amphetamines Screen NEG Urine Benzodiazepines Screen NEG Urine Cocaine Screen NEG Urine Cannabinoids Screen NEG MDM Medical Decision Making Medical Screen Exam Complete: Yes Emergency Medical Condition: Yes Medical Record Reviewed: Yes Differential Diagnosis Aspirin toxicity versus Tylenol overdose versus psychosis versus depression Narrative Course Patient is a 50-year-old male comes in complaining of depression and says he took 12-14 aspirin tonight. Exam shows no acute abnormalities. IV established , labs sent. We spoke to poison control who suggests giving activated charcoal even though patient is at least 8 hours out from taking the aspirin. Poison control also suggests repeat aspirin level after 2 hours and repeat EKG. Patient signed out to Dr. Caldera to follow-up repeat aspirin and EKG and disposition appropriately. Condition: Stable Rochelle Brown MD Jul 11, 2016 06:37
[2016-07-11 06:39] LABS: ALKALINE PHOSPHATASE 67 U/L (45-117); ALT (GPT) 26 U/L (12-78); AST (GOT) 23 U/L (15-37); BICARBONATE 26.6 MEQ/L (21.0-32.0); BLOOD UREA NITROGEN 11 MG/DL (7-18); CHLORIDE 106 MEQ/L (98-107); GLOMERULAR FILTRATION RATE 105 ML/MIN (>89); POTASSIUM 3.5 MEQ/L (3.5-5.1); SODIUM (NA) 142 MEQ/L (136-145); TOTAL BILIRUBIN ADULT 0.3 MG/DL (0.2-1.0)
[2016-07-11 06:43] LABS: ACETAMINOPHEN LESS THAN 2.0 MCG/ML (10.0-30.0)
--- NOTE | 2016-07-11 09:14 | PD ---
Physical Exam Date Seen by Provider: Jul 11, 2016 Time Seen by Provider: 07:00 Narrative The patient was signed out to me by Dr. Brown at 7 AM. Sign out was for repeat aspirin level and EKG at 7:40 AM. This was a patient that intentionally overdose on aspirin and the concern was he also took Latuda which can cause EKG changes. Repeat aspirin level was 3.0 which is lower than the original. Repeat EKG did show an slight increase in the QTC from 436 to 449. Given this, he will be admitted to the medical service for cardiac monitoring. The case was discussed with Dr. Vo, [facility], who agreed for the admission. Data Data Last Documented VS Vital Signs Date Time Temp Pulse Resp B/P Pulse Ox O2 Delivery O2 Flow Rate FiO2 07/11/16 07:44 83 16 147/73 100 07/11/16 05:36 98.5 Room Air Orders Complete Blood Count With Diff (07/11/16 05:33) Comprehensive Metabolic Panel (07/11/16 05:33) Psych Screen (07/11/16 05:33) Drug Screen, Random Urine (07/11/16 05:33) Alcohol (Ethanol) (07/11/16 05:33) Salicylates (Aspirin) (07/11/16 05:33) Tylenol (Acetaminophen) (07/11/16 05:33) Electrocardiogram (07/11/16 ) Charcoal Active-Sorbitol Liq (Charcoal A (07/11/16 06:00) Electrocardiogram (07/11/16 07:51) Salicylates (Aspirin) (07/11/16 07:51) Serum Total Iron (Fe) (07/11/16 08:21) Labs Laboratory Tests Test 07/11/16 07/11/16 07/11/16 05:40 05:45 08:08 White Blood Count 8.7 TH/MM3 Red Blood Count 4.86 MIL/MM3 Hemoglobin 16.6 GM/DL Hematocrit 46.4 % Mean Corpuscular Volume 95.4 FL Mean Corpuscular Hemoglobin 34.1 PG Mean Corpuscular Hemoglobin 35.8 % Concent Red Cell Distribution Width 13.4 % Platelet Count 202 TH/MM3 Mean Platelet Volume 8.9 FL Neutrophils (%) (Auto) 60.7 % Lymphocytes (%) (Auto) 26.2 % Monocytes (%) (Auto) 9.8 % Eosinophils (%) (Auto) 2.8 % Basophils (%) (Auto) 0.5 % Neutrophils # (Auto) 5.3 TH/MM3 Lymphocytes # (Auto) 2.3 TH/MM3 Monocytes # (Auto) 0.9 TH/MM3 Eosinophils # (Auto) 0.2 TH/MM3 Basophils # (Auto) 0.0 TH/MM3 CBC Comment DIFF FINAL Differential Comment Sodium Level 142 MEQ/L Potassium Level 3.5 MEQ/L Chloride Level 106 MEQ/L Carbon Dioxide Level 26.6 MEQ/L Anion Gap 9 MEQ/L Blood Urea Nitrogen 11 MG/DL Creatinine 0.78 MG/DL Estimat Glomerular Filtration 105 ML/MIN Rate Random Glucose 98 MG/DL Calcium Level 9.2 MG/DL Total Bilirubin 0.3 MG/DL Aspartate Amino Transf 23 U/L (AST/SGOT) Alanine Aminotransferase 26 U/L (ALT/SGPT) Alkaline Phosphatase 67 U/L Total Protein 7.4 GM/DL Albumin 4.1 GM/DL Salicylates Level 3.6 MG/DL 3.0 MG/DL Acetaminophen Level LESS THAN 2.0 MCG/ML Ethyl Alcohol Level 9 MG/DL Urine Opiates Screen NEG Urine Barbiturates Screen NEG Urine Amphetamines Screen NEG Urine Benzodiazepines Screen NEG Urine Cocaine Screen NEG Urine Cannabinoids Screen NEG MDM Medical Record Reviewed: Yes Supervised Visit with JHON: No Interpretation(s) Repeat EKG at 740 showed an increase in the QTC from 436 to 449. There was still a intraventricular conduction delay. There are old Q waves noted in the leads 23 and aVF. Differential Diagnosis 50-year-old gentleman who intensely overdose on aspirin and possibly Latuda. Poison control was contacted and recommended checking a repeat aspirin level and repeat EKG. The QTC did lengthen from the first to second EKG. Given this , patient be admitted to the medicine service for cardiac monitoring. [facility] the [facility]. Diagnosis Primary Impression: Intentional overdose of drug in tablet form Additional Impressions: prolonged QTC Major depression, recurrent, chronic Schizoaffective disorder HTN (hypertension) Hypertriglyceridemia Tejas Caldera MD Jul 11, 2016 09:14
[2016-07-11] MEDS ORDERED: ONDANSETRON HCL 4 MG/2 ML VIAL IVP PRN (10:30)
[2016-07-11] MEDS ORDERED: SODIUM CHLORIDE 0.9% FLUSH 10 ML FLUSH IV FLUSH PRN (10:30)
[2016-07-11] MEDS: SODIUM CHLOR 0.45% 1000 ML INJ 1,000 ML IV SCH ×2 (11:09→20:13)
--- NOTE | 2016-07-11 16:03 | PD.CONS ---
Provisional Diagnosis Admission Date Jul 11, 2016 at 09:07 [place] I. Major depressive disorder, recurrent, without psychosis,Schizophrenia, alcohol use disorder [place] II. Unspecified personality disorder [place] III. HTN [place] IV. Lack of family and social support [place] V. 40 History of Present Illness Service Psychiatry Consult Requested By Primary Care Physician DO GLORIA Garcia The patient is a 50 years old man, domiciled alone in [place], single, unemployed, supported by [facility], with extensive psychiatric history of schizophrenia, depression, alcohol use disorder, multiple psychiatric hospitalizations, last hospitalization was here at [facility] on April 2016, he was under the care of Dr. Demarco, documentation was reviewed, patient was discharged on Latuda 40 mg twice a day, citalopram 40 mg, Paxil 50 mg, he claims that he has been compliant with medications, he has been following up in a [facility], he has history of suicidal attempts, also self cutting behavior without SI, history of aggressive behavior and incarcerations, medical history of hypertension, who came to the hospital after a suicidal attempt by overdosing with Latuda and aspirin in the context of alcohol intoxication and breaking up with girlfriend. On psychiatric evaluation today patient was found calm, cooperative. He says the last night he had an argument with his girlfriend, she left him and he realized how miserable and cruel is his life and he tried to commit suicide by overdose. Patient says that he has been feeling depressed, he was discharged from the hospital in April 2016, but he hasn't been able to be functional in the society again and has been struggling with depressive symptoms. Patient reports depressed mood, lack of motivation, generalized pessimism, problems sleeping, weight loss, and suicidal ideation with a plan of overdosing. He denies homicidal ideation, he denies visual and auditory hallucinations at this moment, patient is oriented 3, no gross cognitive impairment observed. He reports daily use of alcohol, generally a pint of vodka, he denies withdrawal symptoms at this moment, he denies the use of illicit drugs. Review of Systems Constitutional: DENIES: Diaphoretic episodes, Fatigue, Fever, Weight gain, Weight loss, Chills, Dizziness, Change in appetite, Night Sweats Endocrine: DENIES: Heat/cold intolerance, Polydipsia, Polyuria, Polyphagia Eyes: DENIES: Blurred vision, Diplopia, Eye inflammation, Eye pain, Vision loss , Photosensitivity, Double Vision Ears, nose, mouth, throat: DENIES: Tinnitus, Hearing loss, Vertigo, Nasal discharge, Oral lesions, Throat pain, Hoarseness, Ear Pain, Running Nose, Epistaxis, Sinus Pain, Toothache, Odynophagia Respiratory: DENIES: Apneas, Cough, Snoring, Wheezing, Hemoptysis, Sputum production, Shortness of breath Cardiovascular: DENIES: Chest pain, Palpitations, Syncope, Dyspnea on Exertion , PND, Lower Extremity Edema, Orthopnea, Claudication Gastrointestinal: DENIES: Abdominal pain, Black stools, Bloody stools, Constipation, Diarrhea, Nausea, Vomiting, Difficulty Swallowing, Anorexia Musculoskeletal: DENIES: Joint pain, Muscle aches, Stiffness, Joint Swelling, Back pain, Neck pain Integumentary: DENIES: Abnormal pigmentation, Nail changes, Pruritus, Rash Hematologic/lymphatic: DENIES: Bruising, Lymphadenopathy Immunologic/allergic: DENIES: Eczema, Urticaria Neurologic: DENIES: Abnormal gait, Headache, Localized weakness, Paresthesias, Seizures, Speech Problems, Tremor, Poor Balance Psychiatric: DENIES: Anxiety, Confusion, Mood changes, Depression, Hallucinations, Agitation, Suicidal Ideation, Homicidal Ideation, Delusions Past Family Social History Coded Allergies: Penicillin (Verified Allergy, Severe, CHILDHOOD - DOESN'T REMEMBER, ) *MDRO Multi-Drug Resistant Organism (Verified Adverse Reaction, Unknown, ) MRSA 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 Active Scripts Folic Acid (Folate)1 Mg Tab1 Mg PO DAILY 30 Days Ref 0 Prov:Rajendra Demarco MD 05/08/16 Thiamine (Vitamin B-1)100 Mg Ync038 Mg PO DAILY 30 Days Ref 0 Prov:Rajendra Demarco MD 05/08/16 Lurasidone (Latuda)40 Mg Tab40 Mg PO WITH DINNER 15 Days Ref 1 Prov:Rajendra Demarco MD 05/08/16 Citalopram (Celexa)20 Mg Tab40 Mg PO DAILY 15 Days Ref 1 Prov:Rajendra Demarco MD 05/08/16 Reported Medications Trazodone 50 Mg Tab50 Mg PO HS #30 TAB Ref 0 05/01/16 Current Medications Medications (Trade) Dose Ordered Sig/Geovanni Route Start Time Stop Time Status Last Admin (04/17 NS 1000 ml Inj) 1,000 ml @ 75 mls/hr [id number] IV 07/11/16 11:00 07/11/16 11:09 (NS Flush) 2 ml UNSCH PRN IV FLUSH 07/11/16 10:30 (NS Flush) 2 ml BID IV FLUSH 07/11/16 21:00 (Zofran Inj) 4 mg Q6H PRN IVP 07/11/16 10:30 Family History He denies family history Social History Patient was born and raised in [place], he lives alone in [place], he is single, he has a girlfriend, is unemployed, supported by [facility], his highest level of education is high school Physical Exam Vital Signs Vital Signs Date Time Temp Pulse Resp B/P Pulse Ox O2 Delivery O2 Flow Rate FiO2 07/11/16 07:44 83 16 147/73 100 07/11/16 05:36 98.5 Room Air Mental Status Examination Appearance man, missing several front dental pieces, appears older than his stated age, poor hygiene, calm and cooperative Speech: Unremarkable Orientation: x3 Memory: Unremarkable Thought Process: Logical Thought Content: Unremarkable Hallucination Type: None Attention and Concentration: Good Suicidal Ideation: Yes Previous Suicide Attempts: Yes Homicidal Ideation: No Previous Homicide Attempts: No Judgement: Poor Affect: Sad Mood: Sad Motor Activity: Normal gait Assessment & Plan Problem List: (1) Major depression, recurrent, chronic Assessment & Plan: The patient is a 50 years old man, domiciled alone in [place], single, unemployed, supported by [facility], with extensive psychiatric history of schizophrenia, depression, alcohol use disorder, multiple psychiatric hospitalizations, last hospitalization was here at [facility] on April 2016, he was under the care of Dr. Demarco, documentation was reviewed, patient was discharged on Latuda 40 mg twice a day, citalopram 40 mg, Paxil 50 mg, he claims that he has been compliant with medications, he has been following up in a [facility] act, he has history of suicidal attempts, also self cutting behavior without SI, history of aggressive behavior and incarcerations, medical history of hypertension, who came to the hospital after a suicidal attempt by overdosing with Latuda and aspirin in the context of alcohol intoxication and breaking up with girlfriend. Patient reports active depression and suicidal ideation, he doesn't have any plan at this moment. Patient represents an increased risk of danger to himself and needs psychiatric admission for stabilization and safety. Patient can be transferred to psychiatry once medically clear. No psychotropics recommended at this moment. Extensive psychoeducation, supportive motivation provided. I will follow-up with the floor. ICD Code: F33.9 Assessment & Plan Estimated LOS: days Stuart Workman MD Jul 11, 2016 16:03
--- NOTE | 2016-07-11 19:47 | HHI.HP ---
HPI Service [facility] Hospitalists Primary Care Physician Everton Barrett, Admission Diagnosis intentional overdose, prolonged QTc interval Diagnoses: Chief Complaint: suicidal attempt, medication overdose Travel History International Travel<30 Days: No Contact w/Intl Traveler <30 Da: No Traveled to Known Affected Are: No History of Present Illness This is a 50-year-old male with past medical history significant for depression , schizophrenia, previous suicidal attempts in the past, self cutting behavior, who presents to [facility] complaining of depression, suicidal ideation and having taken 10-14 tablets of aspirin. The patient was seen by the emergency room physicians. Poison control was contacted, the patient was given activated charcoal. Initially the aspirin level was 3.6 and then came down to 3.0. It was noticed in the EKG that the patient had a QTC prolongation that worsened raising the suspicion that the patient might have taken another antipsychotic. The patient had led to the medications that he was taking, however he insists that he did not take anything else other than aspirin and that he also stopped taking his medications 2 weeks ago. The patient otherwise denies any chest pain, short of breath, palpitations, dizziness, nausea, vomiting, headache, fevers, chills, dysuria, abdominal pain, diarrhea, hematemesis, melena. Review of Systems As per history of present illness, other systems review by me and negative Past Family Social History Past Medical History 1. Patient states he has hypertension however this has not been treated. 2. Suicidal ideation. 3. Schizophrenia. 4. Depression. 5. Self cutting behavior. Past Surgical History 1. Right ankle repair surgery in 2009. 2. Right knee arthroscopic surgery in 2010. Reported Medications Folate (Folic Acid) 1 Mg Tab 1 Mg PO DAILY 30 Days Vitamin B-1 (Thiamine HCl) 100 Mg Tab 100 Mg PO DAILY 30 Days Latuda (Lurasidone) 40 Mg Tab 40 Mg PO WITH DINNER 15 Days Celexa (Citalopram Hydrobromide) 20 Mg Tab 40 Mg PO DAILY 15 Days Trazodone (Trazodone HCl) 50 Mg Tab 50 Mg PO HS Allergies: Coded Allergies: Penicillin (Verified Allergy, Severe, CHILDHOOD - DOESN'T REMEMBER, ) *MDRO Multi-Drug Resistant Organism (Verified Adverse Reaction, Unknown, ) MRSA 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 Active Ordered Medications Current Medications Medications (Trade) Dose Ordered Sig/Geovanni Route Start Time Stop Time Status Last Admin (04/17 NS 1000 ml Inj) 1,000 ml @ 75 mls/hr [id number] IV 07/11/16 11:00 07/11/16 11:09 (NS Flush) 2 ml UNSCH PRN IV FLUSH 07/11/16 10:30 (NS Flush) 2 ml BID IV FLUSH 07/11/16 21:00 (Zofran Inj) 4 mg Q6H PRN IVP 07/11/16 10:30 (Flu (Quadrivalent) Vaccine Inj) 0.5 ml ONCE ONCE IM 07/12/16 10:00 07/12/16 10:01 Family History Positive for diabetes and hypertension. Social History Patient smokes one pack per day for the past 30 years. Drinks alcohol occasionally. Denies illicit drug use. The patient is and has 2 children. The patient lives by himself. Physical Exam Vital Signs Vital Signs Date Time Temp Pulse Resp B/P Pulse Ox O2 Delivery O2 Flow Rate FiO2 07/11/16 16:30 97.0 77 18 152/59 98 07/11/16 16:18 81 16 138/72 98 07/11/16 11:15 96 16 132/73 97 07/11/16 07:44 83 16 147/73 100 07/11/16 05:36 98.5 74 20 151/79 98 Room Air 07/11/16 02:13 97.5 80 16 158/67 98 Room Air 07/10/16 22:53 97.5 78 16 163/85 Room Air Physical Exam GENERAL: This is a well-nourished, well-developed patient, in no apparent distress. SKIN: No rashes, ecchymoses or lesions. Cool and dry. HEAD: Atraumatic. Normocephalic. No temporal or scalp tenderness. EYES: Pupils equal round and reactive. Extraocular motions intact. No scleral icterus. No injection or drainage. ENT: Nose without bleeding, purulent drainage or septal hematoma. Throat without erythema, tonsillar hypertrophy or exudate. Uvula midline. Airway patent. NECK: Trachea midline. No JVD or lymphadenopathy. Supple, nontender, no meningeal signs. CARDIOVASCULAR: Regular rate and rhythm without murmurs, gallops, or rubs. RESPIRATORY: Clear to auscultation. Breath sounds equal bilaterally. No wheezes , rales, or rhonchi. GASTROINTESTINAL: Abdomen soft, non-tender, nondistended. No hepato-splenomegaly , or palpable masses. No guarding. MUSCULOSKELETAL: Extremities without clubbing, cyanosis, or edema. No joint tenderness, effusion, or edema noted. No calf tenderness. Negative Homans sign bilaterally. NEUROLOGICAL: Awake and alert. Cranial nerves II through XII intact. Motor and sensory grossly within normal limits. Five out of 5 muscle strength in all muscle groups. Normal speech. Laboratory Laboratory Tests Test 07/11/16 07/11/16 07/11/16 05:40 05:45 08:08 White Blood Count 8.7 Red Blood Count 4.86 Hemoglobin 16.6 Hematocrit 46.4 Mean Corpuscular Volume 95.4 Mean Corpuscular Hemoglobin 34.1 Mean Corpuscular Hemoglobin 35.8 Concent Red Cell Distribution Width 13.4 Platelet Count 202 Mean Platelet Volume 8.9 Neutrophils (%) (Auto) 60.7 Lymphocytes (%) (Auto) 26.2 Monocytes (%) (Auto) 9.8 Eosinophils (%) (Auto) 2.8 Basophils (%) (Auto) 0.5 Neutrophils # (Auto) 5.3 Lymphocytes # (Auto) 2.3 Monocytes # (Auto) 0.9 Eosinophils # (Auto) 0.2 Basophils # (Auto) 0.0 CBC Comment DIFF FINAL Differential Comment Sodium Level 142 Potassium Level 3.5 Chloride Level 106 Carbon Dioxide Level 26.6 Anion Gap 9 Blood Urea Nitrogen 11 Creatinine 0.78 Estimat Glomerular Filtration 105 Rate Random Glucose 98 Calcium Level 9.2 Iron Level 86 Total Bilirubin 0.3 Aspartate Amino Transf 23 (AST/SGOT) Alanine Aminotransferase 26 (ALT/SGPT) Alkaline Phosphatase 67 Total Protein 7.4 Albumin 4.1 Salicylates Level 3.6 3.0 Acetaminophen Level LESS THAN 2.0 Ethyl Alcohol Level 9 Urine Opiates Screen NEG Urine Barbiturates Screen NEG Urine Amphetamines Screen NEG Urine Benzodiazepines Screen NEG Urine Cocaine Screen NEG Urine Cannabinoids Screen NEG Result Diagram: 07/11/16 0540 07/11/16 0540 Assessment and Plan Problem List: (1) Major depression, recurrent, chronic ICD Code: F33.9 Status: Acute (2) Intentional overdose of drug in tablet form ICD Code: T50.902A Status: Acute (3) Schizoaffective disorder ICD Code: F25.9 Status: Chronic (4) HTN (hypertension) ICD Code: I10 Status: Chronic (5) Suicide attempt ICD Code: T14.91 Status: Acute Assessment and Plan His is a 50-year-old male with past medical history of depression, schizophrenia who presents complaining of ingestion of multiple tablets of aspirin. Patient seen in the emergency department and noticed to have EKG with worsening QTC prolongation. Aspirin levels monitored and coming down. Admit the patient to the medical floor, monitor on telemetry. Psychiatric consult Sitter one-to-one Continue to monitor aspirin level Serial EKGs I will start the patient amlodipine 5 mg by mouth daily for hypertension Continue to monitor vital signs. PPI for GI prophylaxis. SCDs for DVT prophylaxis Code Status Full code Discussed Condition With ED physician, patient, RN. Physician Certification 2 Midnight Certification Type: Admission for Inpatient Services Order for Inpatient Services The services are ordered in accordance with Medicare regulations or non- Medicare payer requirements, as applicable. In the case of services not specified as inpatient-only, they are appropriately provided as inpatient services in accordance with the 2-midnight benchmark. Estimated LOS (days): 2 days is the estimated time the patient will need to remain in the hospital, assuming treatment plan goals are met and no additional complications. Post-Hospital Plan: Other (specify) (psych hospital.) Kamron John MD Jul 11, 2016 19:47
[2016-07-11] MEDS: amLODIPine BESYLATE 5 MG TAB PO SCH (20:13)
[2016-07-11] MEDS: SODIUM CHLORIDE 0.9% FLUSH 10 ML FLUSH IV FLUSH SCH (20:13)
--- NOTE | 2016-07-11 21:52 | EKG ---
Date Performed: 07/11/2016 Time Performed: 06:44:06 PTAGE: 50 years EKG: Sinus rhythm INTRAVENTRICULAR CONDUCTION DELAY INFERIOR MYOCARDIAL INFARCTION Since previous tracing, no signific ant change noted ABNORMAL ECG PREVIOUS TRACING : 01/17/2016 04.46 DOCTOR: Anusha Hickman Interpretating Date/Time 07/11/2016 21:50:26
--- NOTE | 2016-07-11 22:44 | EKG ---
Date Performed: 07/11/2016 Time Performed: 08:04:48 PTAGE: 50 years EKG: Sinus rhythm INTRAVENTRICULAR CONDUCTION DELAY LATERAL MYOCARDIAL INFARCTION INFERIOR MYOCARDIAL INFARCTION ABNOR MAL ECG PREVIOUS TRACING : 07/11/2016 06.44 Compared to prior tracing no significant change DOCTOR: Colby Montaño Interpretating Date/Time 07/11/2016 22:44:00
[2016-07-12 00:10] VITALS: BP 144/70; PULSE 65; RESP 18; TEMP 97.6; O2SAT 97
[2016-07-12 04:42] VITALS: BP 138/93; PULSE 77; RESP 18; TEMP 97.7; O2SAT 96
[2016-07-12 07:03] LABS: ALKALINE PHOSPHATASE 66 U/L (45-117); ALT (GPT) 22 U/L (12-78); ANION GAP 8 MEQ/L (5-15); AST (GOT) 16 U/L (15-37); BICARBONATE 27.4 MEQ/L (21.0-32.0); BLOOD UREA NITROGEN 16 MG/DL (7-18); CHLORIDE 106 MEQ/L (98-107); GLOMERULAR FILTRATION RATE 110 ML/MIN (>89); SODIUM (NA) 141 MEQ/L (136-145); TOTAL BILIRUBIN ADULT 0.5 MG/DL (0.2-1.0)
[2016-07-12 07:21] LABS: AUTOMATED NEUTROPHIL # 3.9 TH/MM3 (1.8-7.7); BASOPHIL # 0.1 TH/MM3 (0-0.2); BASOPHIL % 0.9 % (0.0-2.0); EOSINOPHIL # 0.3 TH/MM3 (0-0.4); EOSINOPHIL % 3.6 % (0.0-4.0); HEMATOCRIT 45.7 % (39.0-51.0); HEMO FLAGS DIFF FINAL; LYMPH % 33.5 % (9.0-44.0); LYMPHOCYTE # 2.5 TH/MM3 (1.0-4.8); MEAN CELL VOLUME 96.2 FL (80.0-100.0); MEAN CORPUSCULAR HEMOGLOBIN 32.9 PG (27.0-34.0); MEAN CORPUSCULAR HGB CONC 34.2 % (32.0-36.0); MONO % 9.6 % (0.0-8.0); NEUT % 52.4 % (16.0-70.0); PLATELET COUNT 184 TH/MM3 (150-450); RED BLOOD COUNT 4.75 MIL/MM3 (4.50-5.90); RED CELL DISTRIBUTION WIDTH 13.5 % (11.6-17.2); WHITE BLOOD COUNT 7.5 TH/MM3 (4.0-11.0)
[2016-07-12 08:09] VITALS: BP 128/74; PULSE 69; RESP 18; TEMP 97.3; O2SAT 95
[2016-07-12] MEDS: SODIUM CHLORIDE 0.9% FLUSH 10 ML FLUSH IV FLUSH SCH (09:00)
[2016-07-12] MEDS: amLODIPine BESYLATE 5 MG TAB PO SCH (09:05)
[2016-07-12] MEDS ORDERED: INFLUENZA VIRUS VACCINE (QUADRIVALENT) 0.5 ML SYR IM ONE (10:00)
[2016-07-12 12:12] VITALS: BP 123/62; PULSE 68; RESP 18; TEMP 97.5; O2SAT 94
[2016-07-12] MEDS: SODIUM CHLOR 0.45% 1000 ML INJ 1,000 ML IV SCH (13:40)
[2016-07-12] MEDS ORDERED: AMLO5 PO (15:53)
--- NOTE | 2016-07-12 15:54 | HHI.DCPOC ---
Discharge Care Plan Diagnosis: (1) Intentional overdose of drug in tablet form (2) HTN (hypertension) (3) Suicide attempt (4) Schizoaffective disorder (5) Major depression, recurrent, chronic (6) Prolonged QT interval Goals to Promote Your Health * To prevent worsening of your condition and complications * To maintain your health at the optimal level Directions to Meet Your Goals Take your medications as prescribed Follow your dietary instruction Follow activity as directed Keep your appointments as scheduled Take your immunizations and boosters as scheduled If your symptoms worsen call your PCP, if no PCP go to Urgent Care Center or Emergency Room Smoking is Dangerous to Your Health. Avoid second hand smoke Call the 24-hour hour crisis hotline for domestic abuse at Kamron John MD Jul 12, 2016 15:54
--- NOTE | 2016-07-12 16:05 | HHI.DS ---
Discharge Summary Admission Date Jul 11, 2016 at 09:07 Discharge Date: Jul 12, 2016 Admitting Diagnosis intentional overdose, prolonged QTc interval (1) Major depression, recurrent, chronic ICD Code: F33.9 Diagnosis: Principal (2) Intentional overdose of drug in tablet form ICD Code: T50.902A Diagnosis: Principal (3) Schizoaffective disorder ICD Code: F25.9 (4) HTN (hypertension) ICD Code: I10 Diagnosis: Principal (5) Suicide attempt ICD Code: T14.91 Diagnosis: Principal (6) Prolonged QT interval ICD Code: R94.31 Diagnosis: Principal Procedures none Brief History - From Admission This is a 50-year-old male with past medical history significant for depression , schizophrenia, previous suicidal attempts in the past, self cutting behavior, who presents to [facility] complaining of depression, suicidal ideation and having taken 10-14 tablets of aspirin. The patient was seen by the emergency room physicians. Poison control was contacted, the patient was given activated charcoal. Initially the aspirin level was 3.6 and then came down to 3.0. It was noticed in the EKG that the patient had a QTC prolongation that worsened raising the suspicion that the patient might have taken another antipsychotic. The patient had led to the medications that he was taking, however he insists that he did not take anything else other than aspirin and that he also stopped taking his medications 2 weeks ago. The patient otherwise denies any chest pain, short of breath, palpitations, dizziness, nausea, vomiting, headache, fevers, chills, dysuria, abdominal pain, diarrhea, hematemesis, melena. CBC/BMP: 07/12/16 0606 07/12/16 0606 Significant Findings Laboratory Tests Test 07/11/16 07/12/16 05:40 06:06 Mean Corpuscular Hemoglobin 34.1 PG (27.0-34.0) Monocytes (%) (Auto) 9.8 % (0.0-8.0) 9.6 % (0.0-8.0) Acetaminophen Level LESS THAN 2.0 MCG/ML (10.0-30.0) Ethyl Alcohol Level 9 MG/DL (0-5) Random Glucose 113 MG/DL (74-106) Pt update on day of discharge The patient denies chest pain or shortness of breath. No evidence on telemetry. No palpitations. QTc down to 432. Hospital Course His is a 50-year-old male with past medical history of depression, schizophrenia who presents complaining of ingestion of multiple tablets of aspirin. Patient seen in the emergency department and noticed to have EKG with worsening QTC prolongation. Aspirin levels monitored and coming down. This was then admitted to the medical floor, monitor on telemetry, no arrhythmias were observed. The catheter consulted, the patient meets inpatient criteria to psychiatry floor once her medically. The patient's EKG was serially monitored and QTC went down from 452 - 432. The patient was also found to be hypertensive , amlodipine 5 mg by mouth daily for hypertension was started achieving acceptable control of the blood pressure. The patient is medically cleared to be discharged to the psychiatric unit. SCDs were instituted for DVT prophylaxis. A one-to-one sitter remained next to the patient at all times. Pt Condition on Discharge: Stable Discharge Disposition: Disc to Psych Care Fac Discharge Time: <= 30 minutes Discharge Instructions DIET: Follow Instructions for: Heart Healthy Diet Activities you can perform: Regular-No Restrictions New Medications: Amlodipine (Norvasc) 5 Mg Tab 5 MG PO DAILY Blood Pressure Management #30 TAB Continued Medications: Folic Acid (Folate) 1 Mg Tab 1 MG PO DAILY Nutritional Supplement Days 30 Ref 0 TAB Thiamine (Vitamin B-1) 100 Mg Tab 100 MG PO DAILY Nutritional Supplement Days 30 Ref 0 TAB Discontinued Medications: Citalopram (Celexa) 20 Mg Tab 40 MG PO DAILY Mental Health Days 15 Ref 1 TAB Lurasidone (Latuda) 40 Mg Tab 40 MG PO WITH DINNER Mental Health Days 15 Ref 1 TAB Trazodone (Trazodone) 50 Mg Tab 50 MG PO HS Control Depression #30 Ref 0 TAB Kamron John MD Jul 12, 2016 16:05
[2016-07-12 16:09] VITALS: BP 126/68; PULSE 68; RESP 18; TEMP 97.8; O2SAT 95
--- NOTE | 2016-07-12 19:49 | EKG ---
Date Performed: 07/12/2016 Time Performed: 11:17:27 PTAGE: 50 years EKG: Sinus rhythm INFERIOR MYOCARDIAL INFARCTION , PROBABLY OLD ABNORMAL ECG PREVIOUS TRACING : 07/12/2016 07.50 Compared to prior tracing no significant change DOCTOR: Colby Montaño Interpretating Date/Time 07/12/2016 19:48:32
--- NOTE | 2016-07-12 20:37 | EKG ---
Date Performed: 07/11/2016 Time Performed: 22:45:13 PTAGE: 50 years EKG: Sinus rhythm INTRAVENTRICULAR CONDUCTION DELAY INFEROLATERAL INFARCTION PREVIOUS TRACING : 07/11/2016 08.04 Compared to prior tracing no significant change DOCTOR: Colby Montaño Interpretating Date/Time 07/12/2016 20:35:49
--- NOTE | 2016-07-13 15:06 | EKG ---
Date Performed: 07/12/2016 Time Performed: 16:44:13 PTAGE: 50 years EKG: Sinus rhythm INFERIOR MYOCARDIAL INFARCTION , PROBABLY OLD Since previous tracing, no significant change noted AB NORMAL ECG PREVIOUS TRACING : 07/12/2016 11.17 DOCTOR: Rajendra Mccray Interpretating Date/Time 07/13/2016 15:06:08
== END 2016-07-12 20:30 | DRG 918 ==
LOC: NEPE 22:52 → NEDA 07-11 09:07 → N04B 07-11 16:28
PROVIDERS: ADMIT Hospitalist; ATTEND Hospitalist
DX: T39.012A Poisoning by aspirin, intentional self-harm, initial encounter (principal); F33.9 Major depressive disorder, recurrent, unspecified; I10 Essential (primary) hypertension; T43.592A Poisoning by other antipsychotics and neuroleptics, intentional self-harm, initial encounter; F60.9 Personality disorder, unspecified; F10.129 Alcohol abuse with intoxication, unspecified; F25.9 Schizoaffective disorder, unspecified; I45.81 Long QT syndrome; Y92.9 Unspecified place or not applicable; Z91.5 Personal history of self-harm; Z86.14 Personal history of Methicillin resistant Staphylococcus aureus infection; Z88.0 Allergy status to penicillin; Z23 Encounter for immunization; F17.210 Nicotine dependence, cigarettes, uncomplicated; J44.9 Chronic obstructive pulmonary disease, unspecified; K21.9 Gastro-esophageal reflux disease without esophagitis; E78.1 Pure hyperglyceridemia
CPT/HCPCS: 80053; 80307; 83540; 85025; 90471; 90686; 93005; G0008; Q2038

== ENCOUNTER 2016-07-12 20:49 | Inpatient (IN) | payer MEDICARE, OTHER ==
[~2016-07-12] VITALS: Ht 177.8 cm; Wt 90.6 kg
[~2016-07-12 20:49] MED LIST changes: +AMLO5 PO
[2016-07-12] MEDS: REMOVE OLD NICOTINE PATCH T-DERMAL SCH (21:00)
[2016-07-12] MEDS ORDERED: diphenhydrAMINE HCL 50 MG/ML VIAL - HS PRN IM (21:15)
[2016-07-12] MEDS ORDERED: ALUMINUM/MAGNESIUM/SIMETH 30 ML CUP PO PRN (21:15)
[2016-07-12] MEDS ORDERED: MAGNESIUM HYDROXIDE SUSP 30 ML CUP PO PRN (21:15)
[2016-07-12 21:23] VITALS: BP 141/71; PULSE 77; RESP 18; TEMP 97.1; O2SAT 96
[2016-07-12] MEDS ORDERED: cloNIDine HCL 0.1 MG TAB PO PRN (21:45)
[2016-07-12] MEDS: hydrOXYzine HCL 50 MG TAB PO PRN (22:19)
[2016-07-12] MEDS: diphenhydrAMINE HCL 50 MG CAP - HS PRN PO (22:19)
[2016-07-13 05:17] VITALS: BP 136/75; PULSE 66; RESP 18; TEMP 98; O2SAT 97
[2016-07-13] MEDS: amLODIPine BESYLATE 5 MG TAB PO SCH (08:17)
[2016-07-13] MEDS: NICOTINE 21 MG/24 HR PATCH T-DERMAL SCH (08:17)
[2016-07-13] MEDS ORDERED: NICOTINE 7 MG/24 HR PATCH T-DERMAL SCH (09:00)
[2016-07-13] MEDS ORDERED: INFLUENZA VIRUS VACCINE (QUADRIVALENT) 0.5 ML SYR IM ONE (10:00)
[2016-07-13] MEDS ORDERED: PNEUMOCOCCAL POLYVALENT INJ 25 MCG/0.5 ML SYR IM ONE (10:00)
--- NOTE | 2016-07-13 10:25 | HHI.HP ---
Provisional Diagnosis Admission Date Jul 12, 2016 at 20:50 [place]. Schizoaffective disorder Certification of Person's Competence To Provide Express and Informed Consent I have personally examined Claudy Maciel , a person being served at [facility] on, Jul 13, 2016 10:17. Express and informed consent means consent voluntarily given in writing, by a competent person, after sufficient explanation and disclosure of the subject matter involved to enable the person to make a knowing and willful decision without any element of force, fraud, deceit, duress, or other form of constraint or coercion. This person is 18 years of age or older, is not now known to be incompetent to consent to treatment with a guardian advocate, and does not have a health care surrogate or proxy currently making medical treatment decisions. I have found this person to be one of the following: x] Competent to provide express and informed consent, as defined above, for voluntary admission to this facility and is competent to provide express and informed consent for treatment. He/she has the consistent capacity to make well reasoned, willful, and knowing decisions concerning his or her medical or mental health treatment. The person fully and consistently understands the purpose of the admission for examination/placement and is fully capable of personally exercising all rights assured under [place] [] Incompetent to provide express and informed consent to voluntary admission, and this is incompetent to provide express and informed consent to treatment. The person must be transferred to involuntary status and a petition for a guardian advocate filed with the Circuit Court. [] Refusing to provide express and informed consent to voluntary admission but is competent to provide express and informed consent for treatment. The person must be discharged or transferred to involuntary status. Form shall be completed within 24 hours of a person's arrival at the receiving facility and filed in the clinical record of each person: 1. Admitted on a voluntary basis 2. Permitted to provide express and informed consent to his/her own treatment 3. Allowed to transfer from involuntary to voluntary status 4. Prior to permitting a person to consent to his or her own treatment after having been previously found incompetent to consent to treatment. History of Present Illness Capacity: Has Capacity HPI This is a 50-year-old male admitted after a overdose/suicide attempt. Apparently he and his girlfriend broke up 1 week ago and a few days later he overdosed on unknown medications but this did precipitate a intensive care workup. When transferred to psychiatry and interviewed by this physician the patient does admit to this suicide attempt. He describes multiple symptoms of depression including depressed mood, anhedonia, suicidal thinking, diminished self-esteem, feelings of hopelessness, sleep disturbance, appetite disturbance and difficulty with concentration and memory. He describes a history of schizoaffective disorder and states he has been noncompliant with his medicines for the last couple of weeks but he did better when he was taking them. He is interested in going back on his psychotropic medications which were last prescribed at this facility. He continues to live alone and did consume a pint of alcohol prior to his suicide attempt. He states normally he does not drink alcohol. Review of Systems ROS Limitations: Clinical Condition Except as stated in HPI: all other systems reviewed are Neg Past Psych History Psychological trauma history Denies Violence risk - others (6 mos) Minimal Violence risk - self (6 mos) High. Substance Abuse History Drugs/Alcohol past 12 months Has intermittently used alcohol over the last year, including most recently 1 week ago Past Family Social History Coded Allergies: Penicillin (Verified Allergy, Severe, CHILDHOOD - DOESN'T REMEMBER, ) *MDRO Multi-Drug Resistant Organism (Verified Adverse Reaction, Unknown, ) MRSA 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 Active Scripts Amlodipine (Norvasc)5 Mg Tab5 Mg PO DAILY #30 TAB Prov:Kamron John MD 07/12/16 Folic Acid (Folate)1 Mg Tab1 Mg PO DAILY 30 Days Ref 0 Prov:Rajendra Demarco MD 05/08/16 Thiamine (Vitamin B-1)100 Mg Qrl002 Mg PO DAILY 30 Days Ref 0 Prov:Rajendra Demarco MD 05/08/16 Discontinued Reported Medications Trazodone 50 Mg Tab50 Mg PO HS #30 TAB Ref 0 05/01/16 Discontinued Scripts Lurasidone (Latuda)40 Mg Tab40 Mg PO WITH DINNER 15 Days Ref 1 Prov:Rajendra Demarco MD 05/08/16 Citalopram (Celexa)20 Mg Tab40 Mg PO DAILY 15 Days Ref 1 Prov:Rajendra Demarco MD 05/08/16 Current Medications Medications (Trade) Dose Ordered Sig/Geovanni Route Start Time Stop Time Status Last Admin (Atarax) 50 mg Q6H PRN PO 07/12/16 21:15 07/12/16 22:19 (Benadryl) 50 mg HS PRN PO 07/12/16 21:15 07/12/16 22:19 (Benadryl Inj) 50 mg HS PRN IM 07/12/16 21:15 (Tylenol) 650 mg Q4H PRN PO 07/12/16 21:15 (Milk Of Magnesia Liq) 30 ml DAILY PRN PO 07/12/16 21:15 (Mag-Al Plus Susp Liq) 30 ml Q6H PRN PO 07/12/16 21:15 Miscellaneous Information 1 HS T-DERMAL 07/12/16 21:00 (Norvasc) 5 mg DAILY PO 07/13/16 09:00 07/13/16 08:17 (Habitrol 21 Mg Patch.24 Hr) 1 patch DAILY T-DERMAL 07/13/16 09:00 07/13/16 08:17 (Catapres) 0.1 mg Q6H PRN PO 07/12/16 21:45 Family History Significant for mood disorders. Social History Lives alone. 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 He receives Social Security disability for his mental disorder. Recent loss of a fci relationship. Patient's Strengths (min. 2) Verbal and resilience. Physical Exam GENERAL: SKIN: Warm and dry. HEAD: Normocephalic. EYES: No scleral icterus. No injection or drainage. NECK: Supple, trachea midline. No JVD or lymphadenopathy. CARDIOVASCULAR: Regular rate and rhythm without murmurs, gallops, or rubs. RESPIRATORY: Breath sounds equal bilaterally. No accessory muscle use. GASTROINTESTINAL: Abdomen soft, non-tender, nondistended. MUSCULOSKELETAL: No cyanosis, or edema. BACK: Nontender without obvious deformity. No CVA tenderness. Vital Signs Vital Signs Date Time Temp Pulse Resp B/P Pulse Ox O2 Delivery O2 Flow Rate FiO2 07/13/16 05:17 98.0 66 18 136/75 97 Mental Status Examination Speech: Unremarkable Orientation: x3 Memory: Unremarkable Thought Process: Organized, Goal Directed Thought Content: Unremarkable Hallucination Type: None Attention and Concentration: Good Suicidal Ideation: Yes Previous Suicide Attempts: Yes Homicidal Ideation: Yes Previous Homicide Attempts: No Insight: Fair Judgement: Impulsive Affect: Good, Sad Affect if Inappropriate: Blunt Mood: Sad Motor Activity: Normal gait Assessment & Plan Problem List: (1) Schizoaffective disorder ICD Code: F25.9 Assessment & Plan Estimated LOS: 5 days patient will be observed and evaluated for ongoing symptoms of depression. This physician discussed placing the patient back on his previous psychotropic medicines which he said were helpful to him. This will take place over the next 2-3 days. Patient is willing to cooperate with treatment and participate in individual as well as group therapies. However, at this time he represents a significant risk to self-harm he continues to feel hopeless and suicidal. Problem Qualifiers (1) Schizoaffective disorder: Qualified Code: F25.0 - Schizoaffective disorder, bipolar type Jp Pablo MD Jul 13, 2016 10:25
[2016-07-13] MEDS: ACETAMINOPHEN 325 MG TAB PO PRN (13:33)
[2016-07-13] MEDS: hydrOXYzine HCL 50 MG TAB PO PRN ×2 (13:33→20:04)
--- NOTE | 2016-07-13 15:19 | PD.CONS ---
HPI Service [facility] Consult Requested By Psychiatry team Reason for Consult Medical management hypertension Primary Care Physician Everton Barrett DO Diagnoses: History of Present Illness Patient is a 50-year-old male with primary medical history of hypertension, depression, schizophrenia, previous suicidal attempts in the past , self cutting behavior who came in to the inpatient setting for complaints of depression, suicidal ideation and took 10-14 tablets of aspirin. Poison control was contacted, the patient was given activated charcoal. Initially Aspirin level was 3.6, repeat was 3.0. EKG with QTC prolongation raising suspicion that patient might have taken another medication. Serial EKGs with QT prolongation trending down. Patient was also found to be hypertensive and started on Norvasc 5 mg daily. His medical condition has improved. He is now admitted to inpatient psychiatry unit for further evaluation of his suicidal ideation, depression, schizophrenia. Consulted for continued medical management. Patient seen today. Reports he's doing well. Denies any suicidal ideation, homicidal ideation. Denies pain and discomfort. Denies SOB/ dyspnea. Denies chest pain, palpitations, headaches, dizziness. Denies fevers, chills, n/v/d. Review of Systems Except as stated in HPI: all other systems reviewed are Neg Past Family Social History Allergies: Coded Allergies: Penicillin (Verified Allergy, Severe, CHILDHOOD - DOESN'T REMEMBER, ) 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; (arm) - 12/2014 Past Medical History 1. Patient states he has hypertension however this has not been treated. 2. Suicidal ideation. 3. Schizophrenia. 4. Depression. 5. Self cutting behavior. Past Surgical History 1. Right ankle repair surgery in 2009. 2. Right knee arthroscopic surgery in 2010 Reported Medications Folate (Folic Acid) 1 Mg Tab 1 Mg PO DAILY 30 Days Vitamin B-1 (Thiamine HCl) 100 Mg Tab 100 Mg PO DAILY 30 Days Latuda (Lurasidone) 40 Mg Tab 40 Mg PO WITH DINNER 15 Days Celexa (Citalopram Hydrobromide) 20 Mg Tab 40 Mg PO DAILY 15 Days Trazodone (Trazodone HCl) 50 Mg Tab 50 Mg PO HS Active Ordered Medications Current Medications Medications (Trade) Dose Ordered Sig/Geovanni Route Start Time Stop Time Status Last Admin (Atarax) 50 mg Q6H PRN PO 07/12/16 21:15 07/13/16 13:33 (Benadryl) 50 mg HS PRN PO 07/12/16 21:15 07/12/16 22:19 (Benadryl Inj) 50 mg HS PRN IM 07/12/16 21:15 (Tylenol) 650 mg Q4H PRN PO 07/12/16 21:15 07/13/16 13:33 (Milk Of Magnesia Liq) 30 ml DAILY PRN PO 07/12/16 21:15 (Mag-Al Plus Susp Liq) 30 ml Q6H PRN PO 07/12/16 21:15 Miscellaneous Information 1 HS T-DERMAL 07/12/16 21:00 (Norvasc) 5 mg DAILY PO 07/13/16 09:00 07/13/16 08:17 (Habitrol 21 Mg Patch.24 Hr) 1 patch DAILY T-DERMAL 07/13/16 09:00 07/13/16 08:17 (Catapres) 0.1 mg Q6H PRN PO 07/12/16 21:45 (Abilify) 2 mg HS PO 07/13/16 21:00 (PROzac) 10 mg DAILY PO 07/14/16 09:00 Family History Family history of diabetes and hypertension Social History The patient is and has 2 children. The patient lives by himself. Patient smokes one pack per day for the past 30 years. Drinks alcohol occasionally. Denies illicit drug use. Physical Exam Vital Signs Vital Signs Date Time Temp Pulse Resp B/P Pulse Ox O2 Delivery O2 Flow Rate FiO2 07/13/16 05:17 98.0 66 18 136/75 97 07/12/16 21:23 97.1 77 18 141/71 96 Physical Exam GENERAL: This is a well-nourished, well-developed patient, in no apparent distress. SKIN: No rashes, ecchymoses or lesions. Cool and dry. HEAD: Atraumatic. Normocephalic. No temporal or scalp tenderness. EYES: Pupils equal round and reactive. Extraocular motions intact. No scleral icterus. No injection or drainage. ENT: Nose without bleeding. Throat without erythema. Uvula midline. Airway patent. NECK: Trachea midline. No JVD or lymphadenopathy. Supple, nontender, no meningeal signs. CARDIOVASCULAR: Regular rate and rhythm without murmurs, gallops, or rubs. RESPIRATORY: Clear to auscultation. Breath sounds equal bilaterally. No wheezes , rales, or rhonchi. GASTROINTESTINAL: Abdomen soft, non-tender, nondistended. No hepato-splenomegaly , or palpable masses. No guarding. MUSCULOSKELETAL: Extremities without clubbing, cyanosis, or edema. No joint tenderness, effusion, or edema noted. NEUROLOGICAL: Awake and alert. Motor and sensory grossly within normal limits. Normal speech. Assessment and Plan Problem List: (1) Prolonged QT interval ICD Code: R94.31 Status: Acute (2) HTN (hypertension) ICD Code: I10 Status: Chronic (3) Intentional overdose of drug in tablet form ICD Code: T50.902A Status: Acute (4) Suicide attempt ICD Code: T14.91 Status: Acute (5) Schizoaffective disorder ICD Code: F25.9 Status: Chronic Assessment and Plan Patient is a 50-year-old male with primary medical history of hypertension, depression, schizophrenia, previous suicidal attempts in the past , self cutting behavior who came in to the inpatient setting for complaints of depression, suicidal ideation and took 10-14 tablets of aspirin. Poison control was contacted, the patient was given activated charcoal. Initially Aspirin level was 3.6, repeat was 3.0. EKG with QTC prolongation raising suspicion that patient might have taken another medication. Serial EKGs with QT prolongation trending down. Patient was also found to be hypertensive and started on Norvasc 5 mg daily. His medical condition has improved. He is now admitted to inpatient psychiatry unit for further evaluation of his suicidal ideation, depression, schizophrenia. Consulted for continued medical management. Suicidal ideation, depression, schizophrenia - Managed by psychiatry team Aspirin overdose QT prolongation - Salicylate level 3.6 --> 3.0 - Serial EKGs improved QT prolongation, sinus rhythm HTN - Continue with Norvasc 5 mg daily - Monitor BP trend Tobacco abuse - counseled. Discussed risks and fatal consequences of continued tobacco use. - Continue nicotine patch use DVT prop ambulatory Discussed with patient, nursing Thank you for this consultation. Stable from Hospitalist standpoint. We will sign off. Reconsult as needed. Written by Kristina Ramirez, acting as scribe for Dr. Walls on 07/13/16 at 15: 18. All or portions of this note were transcribed by scribe [Kristina Ramirez]. I, Dr. Tricia Walls personally performed the history, physical exam, and medical decision making; and confirmed the accuracy of the information in the transcribed note. Authenticated by Dr. Tricia Walls on 07/13/16 at 1530. Code Status Full code Discussed Condition With Patient, nursing Kristina Bedolla Jul 13, 2016 15:19 Tricia Walls MD Jul 13, 2016 21:01
[2016-07-13] MEDS: ARIPiprazole 2 MG TAB PO SCH (20:04)
[2016-07-13] MEDS: REMOVE OLD NICOTINE PATCH T-DERMAL SCH (21:00)
[2016-07-13] MEDS: diphenhydrAMINE HCL 50 MG CAP - HS PRN PO (21:33)
[2016-07-13 21:39] VITALS: BP 145/92; PULSE 90; RESP 18; TEMP 97.8; O2SAT 98
[2016-07-14 06:11] VITALS: BP 140/65; PULSE 73; RESP 18; TEMP 98.8; O2SAT 98
[2016-07-14] MEDS: FLUoxetine HCL 10 MG CAP PO SCH (08:54)
[2016-07-14] MEDS: amLODIPine BESYLATE 5 MG TAB PO SCH (08:54)
[2016-07-14] MEDS: NICOTINE 21 MG/24 HR PATCH T-DERMAL SCH (08:55)
[2016-07-14] MEDS: ACETAMINOPHEN 325 MG TAB PO PRN (10:54)
[2016-07-14] MEDS: hydrOXYzine HCL 50 MG TAB PO PRN ×2 (10:54→17:06)
--- NOTE | 2016-07-14 13:51 | HHI.PYPN ---
Subjective Remarks Patient seen in coverage for Dr. Pablo. Chart reviewed. Case discussed with nursing staff. No behavioral problems noted. On my examination today, the patient reports that his mood remains depressed but is slowly improving. He continues to complain of "bouts of sadness." Denies any ongoing suicidal ideation. No evidence of psychosis. Denies side effects from medications and is generally pleased with his psychotropic medication regimen. Review of Systems Except as stated in HPI: all other systems reviewed are Neg Objective Alert: Yes [place]: Person (oriented 3) Mood: Depressed Affect: Blunted Memory Intact: Comment (intact on clinical examination) Hallucinations: Other (no audiovisual hallucinations) Delusions: No Delusion Type: Other (no delusions elicited) Suicidal: Ideation (denies suicidal ideation) Homicidal: Ideation (no homicidal ideation) Insight/Judgement Fair Remarks No motoric abnormalities noted. Speech is within normal limits for rate, tone and volume. Grooming and hygiene fair. Labs Laboratories from preceding medical hospitalization reviewed. Vitals/IOs Vital Signs Date Time Temp Pulse Resp B/P Pulse Ox O2 Delivery O2 Flow Rate FiO2 07/14/16 06:11 98.8 73 18 140/65 98 Assessment & Plan Problem List: (1) Schizoaffective disorder ICD Code: F25.9 Assessment & Plan Continue Prozac and Abilify as ordered. Continue other medications and care as ordered. Hospitalist senior treasury consultant input noted and appreciated. Justification for Cont. Inpt. Monitoring for impairments in safety. Medication changes. Risk for decompensation in a less restrictive setting. Discharge Planning Pending psychiatric stabilization. Per Dr. Pablo. Request HC Surrog/Guard Advoc?: No Problem Qualifiers (1) Schizoaffective disorder: Qualified Code: F25.0 - Schizoaffective disorder, bipolar type Rajendra Demarco MD Jul 14, 2016 13:51
[2016-07-14 19:15] VITALS: BP 117/75; PULSE 95; RESP 19; TEMP 97.7; O2SAT 97
[2016-07-14] MEDS: REMOVE OLD NICOTINE PATCH T-DERMAL SCH (20:32)
[2016-07-14] MEDS: ARIPiprazole 2 MG TAB PO SCH (20:33)
[2016-07-14] MEDS: diphenhydrAMINE HCL 50 MG CAP - HS PRN PO (20:55)
[2016-07-15 06:17] VITALS: BP 132/70; PULSE 70; RESP 18; TEMP 97.6; O2SAT 98
[2016-07-15] MEDS: amLODIPine BESYLATE 5 MG TAB PO SCH (09:20)
[2016-07-15] MEDS: FLUoxetine HCL 10 MG CAP PO SCH (09:20)
[2016-07-15] MEDS: NICOTINE 21 MG/24 HR PATCH T-DERMAL SCH (09:20)
[2016-07-15] MEDS: hydrOXYzine HCL 50 MG TAB PO PRN ×2 (10:13→20:13)
[2016-07-15] MEDS: ACETAMINOPHEN 325 MG TAB PO PRN ×3 (11:21→20:13)
--- NOTE | 2016-07-15 18:01 | HHI.PYPN ---
Subjective Remarks Pt seen and discussed with staff. Pt reports that his mood is depressed, but symptoms are improving. SI has decreased in frequency and intensity. No behavioral problems on unit. No medication side effects. Review of Systems Psychiatric: COMPLAINS OF: Depression Objective Alert: Yes [place]: Person, Place, Date, Situation Mood: Depressed Affect: Restricted Memory Intact: Comment (intact on clinical examination) Hallucinations: Other (no audiovisual hallucinations) Delusions: No Delusion Type: Other (no delusions elicited) Suicidal: Ideation (reports significantly decreaed) Homicidal: Ideation (no homicidal ideation) Insight/Judgement poor Vitals/IOs Vital Signs Date Time Temp Pulse Resp B/P Pulse Ox O2 Delivery O2 Flow Rate FiO2 07/15/16 06:17 97.6 70 18 132/70 98 Assessment & Plan Problem List: (1) Schizoaffective disorder ICD Code: F25.9 Assessment & Plan Continue current tx plan. Justification for Cont. Inpt. observing for safety Request HC Surrog/Guard Advoc?: No Problem Qualifiers (1) Schizoaffective disorder: Qualified Code: F25.0 - Schizoaffective disorder, bipolar type Jael Currie MD Jul 15, 2016 18:01
[2016-07-15] MEDS: REMOVE OLD NICOTINE PATCH T-DERMAL SCH (19:44)
[2016-07-15 20:14] VITALS: BP 120/69; PULSE 82; RESP 18; TEMP 97.8; O2SAT 98
[2016-07-15] MEDS: ARIPiprazole 2 MG TAB PO SCH (21:21)
[2016-07-15] MEDS: diphenhydrAMINE HCL 50 MG CAP - HS PRN PO (22:31)
[2016-07-16] MEDS: ACETAMINOPHEN 325 MG TAB PO PRN ×3 (03:30→21:36)
[2016-07-16 06:00] VITALS: BP 124/76; PULSE 77; RESP 18; TEMP 98; O2SAT 97
[2016-07-16] MEDS: NICOTINE 21 MG/24 HR PATCH T-DERMAL SCH (09:00)
[2016-07-16] MEDS: amLODIPine BESYLATE 5 MG TAB PO SCH (09:00)
[2016-07-16] MEDS: FLUoxetine HCL 10 MG CAP PO SCH (09:38)
[2016-07-16] MEDS: hydrOXYzine HCL 50 MG TAB PO PRN (11:55)
[2016-07-16 17:30] VITALS: BP 126/70; PULSE 70; RESP 18; TEMP 97.8; O2SAT 99
--- NOTE | 2016-07-16 18:00 | HHI.PYPN ---
Subjective Remarks Pt seen and discussed with staff. Pt reports that his mood continues to improve and depression has decreased. He denies SI/HI. He is compliant with medications and tolerating without side effects. Objective Alert: Yes [place]: Person, Place, Date, Situation Mood: Depressed Affect: Restricted Memory Intact: Comment (intact on clinical examination) Hallucinations: Other (no audiovisual hallucinations) Delusions: No Delusion Type: Other (no delusions elicited) Suicidal: Ideation (reports significantly decreaed) Homicidal: Ideation (no homicidal ideation) Insight/Judgement fair Vitals/IOs Vital Signs Date Time Temp Pulse Resp B/P Pulse Ox O2 Delivery O2 Flow Rate FiO2 07/16/16 17:30 97.8 70 18 126/70 99 Assessment & Plan Problem List: (1) Schizoaffective disorder ICD Code: F25.9 Assessment & Plan Continue current tx plan. Estimated LOS: days Justification for Cont. Inpt. risk of decompensation Request HC Surrog/Guard Advoc?: No Problem Qualifiers (1) Schizoaffective disorder: Qualified Code: F25.0 - Schizoaffective disorder, bipolar type Jael Currie MD Jul 16, 2016 18:00
[2016-07-16] MEDS: REMOVE OLD NICOTINE PATCH T-DERMAL SCH (21:00)
[2016-07-16] MEDS: diphenhydrAMINE HCL 50 MG CAP - HS PRN PO (21:35)
[2016-07-16] MEDS: ARIPiprazole 2 MG TAB PO SCH (21:35)
[2016-07-17 06:02] VITALS: BP 125/71; PULSE 76; RESP 17; TEMP 97.6; O2SAT 93
[2016-07-17] MEDS: amLODIPine BESYLATE 5 MG TAB PO SCH (08:46)
[2016-07-17] MEDS: NICOTINE 21 MG/24 HR PATCH T-DERMAL SCH (08:46)
[2016-07-17] MEDS: FLUoxetine HCL 10 MG CAP PO SCH (08:46)
[2016-07-17] MEDS: hydrOXYzine HCL 50 MG TAB PO PRN (10:24)
[2016-07-17] MEDS: ACETAMINOPHEN 325 MG TAB PO PRN (12:47)
--- NOTE | 2016-07-17 14:25 | HHI.DS ---
Psychiatry Discharge Summary Inpatient Psychiatric care?: Yes Advance Directive: No Reason Not Provided: Due to Patient Condition Mental Health AdvanceDirective: No Health Care Proxy: No Admission Admission Date Jul 12, 2016 at 20:50 Admission Diagnosis: (1) Schizoaffective disorder ICD Code: F25.9 Brief History This is a 50-year-old male admitted after a overdose/suicide attempt. Apparently he and his girlfriend broke up 1 week ago and a few days later he overdosed on unknown medications but this did precipitate a intensive care workup. When transferred to psychiatry and interviewed by this physician the patient does admit to this suicide attempt. He describes multiple symptoms of depression including depressed mood, anhedonia, suicidal thinking, diminished self-esteem, feelings of hopelessness, sleep disturbance, appetite disturbance and difficulty with concentration and memory. He describes a history of schizoaffective disorder and states he has been noncompliant with his medicines for the last couple of weeks but he did better when he was taking them. He is interested in going back on his psychotropic medications which were last prescribed at this facility. He continues to live alone and did consume a pint of alcohol prior to his suicide attempt. He states normally he does not drink alcohol. Tobacco Use In Past 30 Days: 5 or More Cigarettes/Day Alcohol Use: Monthly or Less Hospital Course Patient participated actively in individual as well as group therapies. No procedures were performed. He was started back on his psychotropic medications. At the time of discharge she was tolerating his medicines well, looking forward to going home and verbally manuel for safety. Results Blood Pressure 125 / 71 Vital Signs Date Time Temp Pulse Resp B/P Pulse Ox O2 Delivery O2 Flow Rate FiO2 07/17/16 06:02 97.6 76 17 125/71 93 None pending Summary of Procedures None Pending results at discharge: No Medications # of Antipsychotic meds at D/C: 1 Appropriate >1 Antipsych meds?: 1 Approp Antipsych med options 1 - Minimum of three failed multiple trials of monotherapy. 2 - Documented plan to taper to monotherapy due to previous use of multiple meds OR cross-taper in progress at D/C. 3 - Documentation of augmentation of Clozapine. 4 - Justification other than those listed in allowable values 1-3, document here : Discharge Discharge Date: Jul 17, 2016 Discharge Diagnosis: (1) Schizoaffective disorder Diagnosis: Principal ICD Code: F25.9 Mental Status Exam at Disch At the time of discharge the patient showed no evidence of psychotic symptoms, suicidal ideation, intention or plan and no evidence of homicidal ideation, intention or plan. Cognition was completely intact. Pt Condition on Discharge: Stable Discharge Disposition: Discharge Home Discharge Instructions Diet Instructions: As Tolerated, No Restrictions Activities you can perform: Regular-No Restrictions Scheduled Appointment: Abraham [facility] Appointment Date: Jul 21, 2016 Appointment Time: 07:45am Discharge Time <= 30 minutes Discharge/Advance Care Plan Health Problems: (1) Schizoaffective disorder Goals to promote your health * To prevent worsening of your condition and complications * To maintain your health at the optimal level Directions to meet your goals Take your medications as prescribed Follow your dietary instruction Follow activity as directed Keep your appointments as scheduled Take your immunizations and boosters as scheduled If your symptoms worsen call your PCP, if no PCP go to Urgent Care Center or Emergency Room For 06/11 questions related to your inpatient stay or results of tests pending at discharge, please contact Dr. Jp Pablo at Smoking is Dangerous to Your Health. Avoid second hand smoking Problem Qualifiers (1) Schizoaffective disorder: Qualified Code: F25.0 - Schizoaffective disorder, bipolar type (2) Schizoaffective disorder: Qualified Code: F25.0 - Schizoaffective disorder, bipolar type Jp Pablo MD Jul 17, 2016 14:25
[2016-07-17] MEDS ORDERED: ABIL2TAB2 PO (14:28)
[2016-07-17] MEDS ORDERED: VITA100T2 PO (14:28)
[2016-07-17] MEDS ORDERED: FLUO-1 PO (14:28)
[2016-07-17] MEDS ORDERED: FOLI1TAB4 PO (14:28)
[2016-07-17] MEDS ORDERED: AMLO5 PO (14:28)
== END 2016-07-17 15:20 | disposition home or self-care (01) | DRG 885 ==
LOC: H260 20:50
PROVIDERS: ADMIT Psychiatry & Neurology Psychiatry; ATTEND Psychiatry & Neurology Psychiatry
DX: F25.9 Schizoaffective disorder, unspecified (principal); Z91.14 Patient's other noncompliance with medication regimen; R94.31 Abnormal electrocardiogram [ECG] [EKG]; I10 Essential (primary) hypertension; F17.210 Nicotine dependence, cigarettes, uncomplicated
CPT/HCPCS: Q0163

== ENCOUNTER 2016-07-20 12:37 | Emergency (ER) | payer MEDICARE, OTHER ==
[~2016-07-20] VITALS: Ht 175.3 cm; Wt 91.0 kg
[~2016-07-20 12:37] MED LIST changes: +ABIL2TAB2 PO; -CELE20TA PO; +FLUO-1 PO; -LURA40 PO; -TRAZ50TA12 PO
[2016-07-20 12:38] VITALS: BP 197/98; PULSE 84; RESP 14; TEMP 98.2; O2SAT 98
[2016-07-20 12:48] VITALS: BP 163/90
[2016-07-20] MEDS ORDERED: LORA-474 PO (13:18)
--- NOTE | 2016-07-20 13:19 | PD ---
HPI Chief Complaint: Suicide Ideation/Attempt Time Seen by Provider: 13:13 Travel History International Travel<30 days: No Contact w/Intl Traveler<30days: No Traveled to known affect area: No History of Present Illness HPI 51-year-old male presents to the emergency Department voluntarily for psychiatric evaluation. The patient states he is having worsening thoughts of suicide. The patient states that his thoughts have been worsening recently. He states he has been doing anymore more about suicide and has a plan either to overdose on pills or slit his wrist. He states he has not tried at this point to hurt himself. He reports multiple previous suicidal attempts in the past. The last he states was approximately a couple of weeks ago when he overdosed on aspirin. The patient states he drinks when he feels manic. He states he was drinking around 3 AM this morning. He does report smoking one half packs of cigarettes daily. He also admits to using cocaine. He states he smoked it 3 days ago. He denies any IVDU. Patient with history of hypertension, allergies , schizoaffective disorder. He is currently on Prozac, Abilify, Norvasc, Ativan. He states he is not taking his Prozac or Abilify in 3 days. He states that he does not take his Ativan as he is supposed to. He states he hears voices. These voices have been worsening telling him to do bad things. He denies any hallucinations. Patient is requesting to be placed under Yoo act stating that he is afraid he will change his mind and leave if he has not held involuntarily. PFSH Past Medical History Asthma: No Autoimmune Disease: No Bipolar Disorder: Yes Anxiety: Yes Depression: Yes Heart Rhythm Problems: No Cancer: No Cardiovascular Problems: No High Cholesterol: No Chest Pain: No Congestive Heart Failure: No COPD: Yes Diabetes: No Diminished Hearing: No Endocrine: No Gastrointestinal Disorders: Yes GERD: Yes (NOT AT THE PRESENT TIME) Genitourinary: No Headaches: No Hepatitis: No Hiatal Hernia: No Hypertension: Yes Immune Disorder: No Kidney Stones: No Musculoskeletal: No Neurologic: No Psychiatric: No Reproductive: No Respiratory: No Immunizations Current: Yes Renal Failure: No Seizures: No Sickle Cell Disease: No Sleep Apnea: No Thyroid Disease: No Ulcer: No Past Surgical History Abdominal Surgery: No AICD: No Body Medical Devices: PIN IN RIGHT ANKLE Cardiac Surgery: No Ear Surgery: No Endocrine Surgery: No Eye Surgery: No Genitourinary Surgery: No Gynecologic Surgery: No Joint Replacement: Yes (R knee) Neurologic Surgery: No Oral Surgery: No Pacemaker: No Thoracic Surgery: No Other Surgery: Yes ( ) Social History Alcohol Use: Yes Tobacco Use: Yes Substance Use: Yes (MARIJUANA USE) Allergies-Medications (Allergen,Severity, Reaction): Coded Allergies: Penicillin (Verified Allergy, Severe, CHILDHOOD - DOESN'T REMEMBER, 07/20/16 ) 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 Afebrile. Patient has strong smell alcohol on his breath. SKIN: Focused skin assessment warm/dry. HEAD: Normocephalic. Atraumatic. EYES: No scleral icterus. No injection or drainage. NECK: Supple, trachea midline. No JVD or lymphadenopathy. CARDIOVASCULAR: Regular rate and rhythm without murmurs, gallops, or rubs. RESPIRATORY: Breath sounds equal bilaterally. No accessory muscle use. Lungs sounds are clear to auscultation. GASTROINTESTINAL: Abdomen soft, non-tender, nondistended. MUSCULOSKELETAL: No cyanosis, or edema. PSYCHIATRIC: No delusional thought processes. No hallucinations. Data Data Last Documented VS Vital Signs Date Time Temp Pulse Resp B/P Pulse Ox O2 Delivery O2 Flow Rate FiO2 07/20/16 13:10 16 Room Air 07/20/16 12:48 163/90 07/20/16 12:38 98.2 84 98 Orders Complete Blood Count With Diff (07/20/16 13:04) Comprehensive Metabolic Panel (07/20/16 13:04) Psych Screen (07/20/16 13:04) Drug Screen, Random Urine (07/20/16 13:04) Alcohol (Ethanol) (07/20/16 13:04) Salicylates (Aspirin) (07/20/16 13:04) Tylenol (Acetaminophen) (07/20/16 13:04) Labs Laboratory Tests Test 07/20/16 07/20/16 13:20 13:25 White Blood Count 11.7 TH/MM3 Red Blood Count 4.35 MIL/MM3 Hemoglobin 14.5 GM/DL Hematocrit 40.9 % Mean Corpuscular Volume 94.1 FL Mean Corpuscular Hemoglobin 33.4 PG Mean Corpuscular Hemoglobin 35.5 % Concent Red Cell Distribution Width 13.3 % Platelet Count 222 TH/MM3 Mean Platelet Volume 8.5 FL Neutrophils (%) (Auto) 55.0 % Lymphocytes (%) (Auto) 34.3 % Monocytes (%) (Auto) 9.6 % Eosinophils (%) (Auto) 0.4 % Basophils (%) (Auto) 0.7 % Neutrophils # (Auto) 6.4 TH/MM3 Lymphocytes # (Auto) 4.0 TH/MM3 Monocytes # (Auto) 1.1 TH/MM3 Eosinophils # (Auto) 0.0 TH/MM3 Basophils # (Auto) 0.1 TH/MM3 CBC Comment DIFF FINAL Differential Comment Sodium Level 138 MEQ/L Potassium Level 3.9 MEQ/L Chloride Level 103 MEQ/L Carbon Dioxide Level 26.8 MEQ/L Anion Gap 8 MEQ/L Blood Urea Nitrogen 10 MG/DL Creatinine 0.88 MG/DL Estimat Glomerular Filtration 91 ML/MIN Rate Random Glucose 89 MG/DL Calcium Level 9.1 MG/DL Total Bilirubin 0.6 MG/DL Aspartate Amino Transf 43 U/L (AST/SGOT) Alanine Aminotransferase 40 U/L (ALT/SGPT) Alkaline Phosphatase 77 U/L Total Protein 7.4 GM/DL Albumin 3.8 GM/DL Salicylates Level 2.5 MG/DL Acetaminophen Level LESS THAN 2.0 MCG/ML Ethyl Alcohol Level LESS THAN 3 MG/DL Urine Opiates Screen NEG Urine Barbiturates Screen NEG Urine Amphetamines Screen NEG Urine Benzodiazepines Screen NEG Urine Cocaine Screen POS Urine Cannabinoids Screen NEG MDM Medical Decision Making Medical Screen Exam Complete: Yes Emergency Medical Condition: Yes Medical Record Reviewed: Yes Differential Diagnosis Schizoaffective disorder versus bipolar disorder versus depression versus anxiety versus noncompliance of medication versus substance induced mood disorder Narrative Course 51-year-old male presents to the emergency department for worsening suicidal thoughts with previous suicide attempts. He reports having a plan either overdosing on pills or slitting his wrist. Patient has multiple psychiatric admissions. Patient is placed under a Yoo act. CBC, CMP, urine drug screen, alcohol level, salicylate level, Tylenol level are ordered and pending. CBC shows slight leukocytosis of 11.7. CMP is unremarkable other than a slightly elevated AST of 43. Alcohol level is less than 3. UDS is positive for cocaine. Tylenol level is less than 2.0. Salicylate level is 2.5. Patient is medically cleared for psychiatric screening and disposition. Mental health screening discussed with the patient. Psychiatric screen ordered. Diagnosis Primary Impression: Schizoaffective disorder Qualified Code: F25.1 - Schizoaffective disorder, depressive type Additional Instructions: Patient is medically cleared for psychiatric screening and disposition. Condition: Stable Josette Espana Jul 20, 2016 13:19
[2016-07-20 13:35] LABS: AUTOMATED NEUTROPHIL # 6.4 TH/MM3 (1.8-7.7); BASOPHIL # 0.1 TH/MM3 (0-0.2); BASOPHIL % 0.7 % (0.0-2.0); EOSINOPHIL % 0.4 % (0.0-4.0); HEMATOCRIT 40.9 % (39.0-51.0); HEMO FLAGS DIFF FINAL; LYMPH % 34.3 % (9.0-44.0); MEAN CELL VOLUME 94.1 FL (80.0-100.0); MEAN CORPUSCULAR HEMOGLOBIN 33.4 PG (27.0-34.0); MEAN CORPUSCULAR HGB CONC 35.5 % (32.0-36.0); MONO % 9.6 % (0.0-8.0); PLATELET COUNT 222 TH/MM3 (150-450); RED BLOOD COUNT 4.35 MIL/MM3 (4.50-5.90); RED CELL DISTRIBUTION WIDTH 13.3 % (11.6-17.2); WHITE BLOOD COUNT 11.7 TH/MM3 (4.0-11.0)
[2016-07-20 13:40] LABS: AMPHETAMINE, URINE NEG (NEG); BARBITURATES, URINE NEG (NEG); COCAINE, URINE POS (NEG)
[2016-07-20 13:49] LABS: ALKALINE PHOSPHATASE 77 U/L (45-117); ALT (GPT) 40 U/L (12-78); TOTAL BILIRUBIN ADULT 0.6 MG/DL (0.2-1.0)
[2016-07-20 13:50] LABS: ACETAMINOPHEN LESS THAN 2.0 MCG/ML (10.0-30.0); ANION GAP 8 MEQ/L (5-15); AST (GOT) 43 U/L (15-37); BICARBONATE 26.8 MEQ/L (21.0-32.0); BLOOD UREA NITROGEN 10 MG/DL (7-18); CHLORIDE 103 MEQ/L (98-107); GLOMERULAR FILTRATION RATE 91 ML/MIN (>89); POTASSIUM 3.9 MEQ/L (3.5-5.1); SODIUM (NA) 138 MEQ/L (136-145)
[2016-07-20 22:09] VITALS: BP 133/70; PULSE 69; RESP 18
[2016-07-21 02:13] VITALS: BP 153/88; PULSE 75; RESP 18; O2SAT 98
[2016-07-21 06:16] VITALS: BP 156/63; PULSE 63; RESP 17; O2SAT 96
--- NOTE | 2016-07-21 10:41 | PD ---
History of Present Illness Chief Complaint: Suicide Ideation/Attempt Time Seen by Provider: 10:00 Travel History International Travel<30 Days: No Contact w/Intl Traveler<30days: No Known affected area: No Legal Status Legal Status: Yoo Act Yoo Act Signed By: DR LOPEZ History of Present Illness: 51-year-old male who is well known to this physician from previous emergency department visits and inpatient hospitalization. Patient has shown no evidence of true mood disorder symptoms upon the last hospitalization and does not demonstrate true mood disorder symptoms at this time, in my opinion. He was Yoo acted last night due to threats of suicide with the attending physician and the medical side of the emergency department. This was after he used up his disability check in taking illicit drugs. Additionally, he never picked up his psychotropic medications or took them after his discharge from inpatient. This physician finds the patient to be primarily a drug addict, manipulative and malingering. It is counter therapeutic to admit him to an inpatient psychiatric facility. This physician understands the risks that the patient may act out in a way harmful to himself but does not find any reasonable alternative to encourage the patient to stop this type of self-destructive behavior. PFSH Past Medical History Asthma: No Autoimmune Disease: No Anxiety: Yes Depression: Yes Heart Rhythm Problems: No Cancer: No Cardiovascular Problems: No High Cholesterol: No Chest Pain: No Congestive Heart Failure: No COPD: Yes Diabetes: No Diminished Hearing: No Endocrine: No Gastrointestinal Disorders: Yes GERD: Yes (NOT AT THE PRESENT TIME) Genitourinary: No Headaches: No Hepatitis: No Hiatal Hernia: No Hypertension: Yes Immune Disorder: No Kidney Stones: No Medical other: Yes (GERD) Musculoskeletal: No Neurologic: No Psychiatric: No Reproductive: No Respiratory: No Immunizations Current: Yes Renal Failure: No Seizures: No Sickle Cell Disease: No Sleep Apnea: No Thyroid Disease: No Ulcer: No Tetanus Vaccination: > 5 Years Influenza Vaccination: Yes Past Surgical History Abdominal Surgery: No AICD: No Body Medical Devices: PIN IN RIGHT ANKLE Cardiac Surgery: No Ear Surgery: No Endocrine Surgery: No Eye Surgery: No Genitourinary Surgery: No Gynecologic Surgery: No Joint Replacement: Yes (R knee) Neurologic Surgery: No Oral Surgery: No Pacemaker: No Thoracic Surgery: No Other Surgery: Yes ( ) Psychiatric History Psychiatric History Hx Psychiatric Treatment: Pt shares he has been here and records show previous visits to psych about 6 inpatient visits going back to 2013 when he presented with a Depression. He has had ongoing outpt care through [facility] since then . Patient has been noncompliant with his care at [facility]. This physician doubts the patient's previous diagnosis of bipolar disorder at this time. History of Inpatient Treatment: Yes Social History Hx Alcohol Use: Yes (12 PCK DAILY ) Hx Tobacco Use: Yes (1.5 PPD ) Hx Substance Use: Yes Substance Use Type: Alcohol, Cocaine Other Substances Used: 02/15 PPD CIGARETTED, MARAJUANA 2X/WEEK, ETOH 6+BEERS EVERY 2-3 MOS. 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; (arm) - 12/2014 Reported Meds & Prescriptions Reported Meds & Active Scripts Active Prozac (Fluoxetine HCl) 10 Mg Cap 10 Mg PO DAILY Abilify (Aripiprazole) 2 Mg Tab 2 Mg PO HS Norvasc (Amlodipine Besylate) 5 Mg Tab 5 Mg PO DAILY Folate (Folic Acid) 1 Mg Tab 1 Mg PO DAILY Vitamin B-1 (Thiamine HCl) 100 Mg Tab 100 Mg PO DAILY Reported Ativan (Lorazepam) 1 Mg Tab 1 Mg PO Q8H PRN Review of Systems ROS Limitations: Clinical Condition Except as stated in HPI: all other systems reviewed are Neg Exam Exam Limitations: Clinical Condition Alert: Yes [place]: Person, Place, Date, Situation Mood: Calm Affect: Appropriate Speech: Clear, Logical Eye Contact: Normal Memory Intact: Immediate, Recent, Remote Suicidal: Ideation Insight/Judgement Adequate except for his use of illicit drugs. [facility] Medical Decision Making Medical Record Reviewed: Yes Assessment/Plan Once again, this physician has reviewed the patient's medical records as well as examined him multiple times. There is no true evidence of bipolar disorder at this time and there was not true evidence of bipolar disorder, in my opinion , at his recent inpatient hospitalization. Instead, the patient presents in a highly manipulative fashion, drug seeking and malingering. This physician feels it is counter therapeutic to admit the patient to inpatient psychiatry for these reasons. Patient can and needs to learn to be responsible for his choices. He may act out when discharged but he is fully competent to make decisions regarding his own self-care. Orders Complete Blood Count With Diff (07/20/16 13:04) Comprehensive Metabolic Panel (07/20/16 13:04) Psych Screen (07/20/16 13:04) Drug Screen, Random Urine (07/20/16 13:04) Alcohol (Ethanol) (07/20/16 13:04) Salicylates (Aspirin) (07/20/16 13:04) Tylenol (Acetaminophen) (07/20/16 13:04) Diet Regular Basic (07/20/16 Dinner) Diet Regular Basic (07/21/16 Breakfast) Diet Regular Basic (07/21/16 Lunch) Results Vital Signs Date Time Temp Pulse Resp B/P Pulse Ox O2 Delivery O2 Flow Rate FiO2 07/21/16 06:16 63 17 156/63 96 Room Air 07/21/16 02:13 75 18 153/88 98 07/20/16 22:09 69 18 133/70 07/20/16 13:10 16 Room Air 07/20/16 12:48 163/90 07/20/16 12:38 98.2 84 14 197/98 98 Laboratory Tests Test 07/20/16 07/20/16 13:20 13:25 White Blood Count 11.7 Red Blood Count 4.35 Hemoglobin 14.5 Hematocrit 40.9 Mean Corpuscular Volume 94.1 Mean Corpuscular Hemoglobin 33.4 Mean Corpuscular Hemoglobin 35.5 Concent Red Cell Distribution Width 13.3 Platelet Count 222 Mean Platelet Volume 8.5 Neutrophils (%) (Auto) 55.0 Lymphocytes (%) (Auto) 34.3 Monocytes (%) (Auto) 9.6 Eosinophils (%) (Auto) 0.4 Basophils (%) (Auto) 0.7 Neutrophils # (Auto) 6.4 Lymphocytes # (Auto) 4.0 Monocytes # (Auto) 1.1 Eosinophils # (Auto) 0.0 Basophils # (Auto) 0.1 CBC Comment DIFF FINAL Differential Comment Sodium Level 138 Potassium Level 3.9 Chloride Level 103 Carbon Dioxide Level 26.8 Anion Gap 8 Blood Urea Nitrogen 10 Creatinine 0.88 Estimat Glomerular Filtration 91 Rate Random Glucose 89 Calcium Level 9.1 Total Bilirubin 0.6 Aspartate Amino Transf 43 (AST/SGOT) Alanine Aminotransferase 40 (ALT/SGPT) Alkaline Phosphatase 77 Total Protein 7.4 Albumin 3.8 Salicylates Level 2.5 Acetaminophen Level LESS THAN 2.0 Ethyl Alcohol Level LESS THAN 3 Urine Opiates Screen NEG Urine Barbiturates Screen NEG Urine Amphetamines Screen NEG Urine Benzodiazepines Screen NEG Urine Cocaine Screen POS Urine Cannabinoids Screen NEG Diagnosis Primary Impression: Schizoaffective disorder Additional Instructions: Patient is medically cleared for psychiatric screening and disposition. Condition: Stable Problem Qualifiers Primary Impression: Schizoaffective disorder Qualified Code: F25.1 - Schizoaffective disorder, depressive type Jp Pablo MD Jul 21, 2016 10:41
== END 2016-07-21 11:39 | disposition home or self-care (01) ==
LOC: NEPD 12:37 → NEPJ 07-21 11:39
DX: F25.1 Schizoaffective disorder, depressive type (principal); F17.210 Nicotine dependence, cigarettes, uncomplicated; Z79.899 Other long term (current) drug therapy
CPT/HCPCS: 80053; 80307; 85025; 99284

== ENCOUNTER 2016-07-21 19:12 | Emergency (ER) | payer MEDICARE, OTHER ==
[~2016-07-21] VITALS: Ht 170.2 cm; Wt 69.0 kg
[~2016-07-21 19:12] MED LIST changes: +LORA-474 PO
--- NOTE | 2016-07-21 19:53 | PD ---
HPI Chief Complaint: psychiatric evaluation Time Seen by Provider: 19:50 Travel History International Travel<30 days: No Contact w/Intl Traveler<30days: No History of Present Illness HPI Patient comes in under Yoo act by police for making suicidal statements. Patient admits to having thoughts of harming himself and had plans of overdosing but denies actually attempting this. Patient denies any homicidal ideations. Denies any medical concerns this time. Denies any chest pain, shortness of breath, nausea, vomiting, fevers, or headaches. PFSH Past Medical History Asthma: No Autoimmune Disease: No Anxiety: Yes Depression: Yes Heart Rhythm Problems: No Cancer: No Cardiovascular Problems: No High Cholesterol: No Chest Pain: No Congestive Heart Failure: No COPD: Yes Diabetes: No Diminished Hearing: No Endocrine: No Gastrointestinal Disorders: Yes GERD: Yes (NOT AT THE PRESENT TIME) Genitourinary: No Headaches: No Hepatitis: No Hiatal Hernia: No Hypertension: Yes Immune Disorder: No Kidney Stones: No Musculoskeletal: No Neurologic: No Psychiatric: No Reproductive: No Respiratory: No Immunizations Current: Yes Renal Failure: No Seizures: No Sickle Cell Disease: No Sleep Apnea: No Thyroid Disease: No Ulcer: No Past Surgical History Abdominal Surgery: No AICD: No Body Medical Devices: PIN IN RIGHT ANKLE Cardiac Surgery: No Ear Surgery: No Endocrine Surgery: No Eye Surgery: No Genitourinary Surgery: No Gynecologic Surgery: No Joint Replacement: Yes (R knee) Neurologic Surgery: No Oral Surgery: No Pacemaker: No Thoracic Surgery: No Other Surgery: Yes ( ) Social History Alcohol Use: Yes (12 PCK DAILY ) Tobacco Use: Yes (1.5 PPD ) Substance Use: Yes Allergies-Medications (Allergen,Severity, Reaction): Coded Allergies: Penicillin (Verified Allergy, Severe, CHILDHOOD - DOESN'T REMEMBER, 07/21/16 ) 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 SKIN: Focused skin assessment warm and dry. HEAD: Atraumatic. Normocephalic. EYES: Pupils equal and round. EOMI. No scleral icterus. No injection or drainage. ENT: No nasal bleeding or discharge. Mucous membranes pink and moist. NECK: Trachea midline. Supple. No nuclear rigidity. CARDIOVASCULAR: Regular rate and rhythm. No murmur appreciated. RESPIRATORY: No accessory muscle use. No respiratory distress. Clear to auscultation. Breath sounds equal bilaterally. MUSCULOSKELETAL: No obvious deformities. No clubbing. No cyanosis. No edema. Full range of motion. NEUROLOGICAL: Awake and alert. No obvious cranial nerve deficits. Motor grossly within normal limits. Normal speech. PSYCHIATRIC: Appropriate mood and affect; insight and judgment normal. Data Data Last Documented VS Vital Signs Date Time Temp Pulse Resp B/P Pulse Ox O2 Delivery O2 Flow Rate FiO2 07/21/16 20:09 97.9 75 18 140/98 99 Orders Psych Screen (07/21/16 19:58) [facility] Medical Decision Making Medical Screen Exam Complete: Yes Emergency Medical Condition: Yes Medical Record Reviewed: Yes Differential Diagnosis Homicidal, suicidal, malingering, substance abuse, other Narrative Course Patient was seen and examined. Labs were obtained yesterday and reviewed. No need for additional laboratory evaluation at this time. Patient medically cleared for further treatment and evaluation by psych. Final disposition per psych. Diagnosis Primary Impression: Medical clearance for psychiatric admission Condition: Stable Pito Alexandra Jul 21, 2016 19:53
[2016-07-21 20:09] VITALS: BP 140/98; PULSE 75; RESP 18; TEMP 97.9; O2SAT 99
[2016-07-22 01:52] VITALS: BP 127/68; PULSE 68; RESP 18; O2SAT 97
[2016-07-22 06:28] VITALS: BP 123/71; PULSE 83; RESP 18; O2SAT 98
[2016-07-22 12:30] VITALS: BP 111/73; PULSE 83; RESP 18
== END 2016-07-22 14:00 ==
LOC: NEPB 19:12 → NEPJ 07-22 14:00
DX: Z02.89 Encounter for other administrative examinations (principal); I10 Essential (primary) hypertension; F17.200 Nicotine dependence, unspecified, uncomplicated; Z86.59 Personal history of other mental and behavioral disorders; Z87.09 Personal history of other diseases of the respiratory system; Z87.19 Personal history of other diseases of the digestive system
CPT/HCPCS: 99284

== ENCOUNTER 2016-12-14 22:25 | Inpatient (IN) | payer MEDICARE, OTHER ==
[~2016-12-14] VITALS: Ht 177.8 cm; Wt 96.6 kg
[2016-12-14 22:26] VITALS: BP 202/100; PULSE 88; RESP 16; TEMP 97.8; O2SAT 96
--- NOTE | 2016-12-14 22:36 | PD ---
Physical Exam Time Seen by Provider: 22:34 Narrative 51yo admits to taking 32 full sized aspirin 2 hours ago to try to commit suicide. +nausea w/o vomiting. HX HTN, COPD. Patient seen in triage. VS reviewed. Patient taken to med bed from triage. Data Data Last Documented VS Vital Signs Date Time Temp Pulse Resp B/P (MAP) Pulse Ox O2 Delivery O2 Flow Rate FiO2 12/14/16 22:26 97.8 88 16 202/100 (134) 96 Room Air MDM Supervised Visit with JHON: Alejandra Cowan Dec 14, 2016 22:36
[2016-12-14] MEDS ORDERED: ACTIVATED CHARCOAL/SORBITOL LIQUID 25 GM/120 ML BTL PO ONE (23:00)
[2016-12-14 23:19] LABS: BLOOD GAS BASE EXCESS -0.5 mmol/L (-2-2); BLOOD GAS CARBOXYHEMOGLOBIN 11.9 % (0-4); BLOOD GAS HCO3 23 mmol/L (22-26); BLOOD GAS METHEMOGLOBIN 1.1 % (0-2); BLOOD GAS O2 HGB SATURATION 84 % (90-100); BLOOD GAS OXYGEN CONTENT 18.2 Vol % (12.0-20.0); BLOOD GAS PCO2 35 mmHg (38-42); BLOOD GAS PO2 76 mmHG (61-120); BLOOD GAS TOTAL HGB 15.4 G/DL (12.0-16.0); TEMP CORR TO 98.6
[2016-12-14 23:20] LABS: CRITICAL VALUE YES; FIO2 21 %; OXYGEN DEVICE ROOM AIR
[2016-12-14 23:21] LABS: DRAW SITE RT RADIAL; NUMBER OF ARTERIAL PUNCTURES 1; STAT YES; ULNAR PULSE PRESENT
[2016-12-14 23:37] LABS: BASOPHIL # 0.1 TH/MM3 (0-0.2); BASOPHIL % 0.5 % (0.0-2.0); EOSINOPHIL % 0.2 % (0.0-4.0); HEMATOCRIT 46.2 % (39.0-51.0); HEMO FLAGS DIFF FINAL; LYMPH % 24.9 % (9.0-44.0); LYMPHOCYTE # 3.7 TH/MM3 (1.0-4.8); MEAN CELL VOLUME 97.3 FL (80.0-100.0); MEAN CORPUSCULAR HEMOGLOBIN 33.8 PG (27.0-34.0); MEAN CORPUSCULAR HGB CONC 34.8 % (32.0-36.0); NEUT % 67.4 % (16.0-70.0); PLATELET COUNT 221 TH/MM3 (150-450); RED BLOOD COUNT 4.75 MIL/MM3 (4.50-5.90); WHITE BLOOD COUNT 14.9 TH/MM3 (4.0-11.0)
[2016-12-14] MEDS ORDERED: LURA120T PO (23:38)
[2016-12-14] MEDS ORDERED: PROZ40CA PO (23:38)
[2016-12-14 23:51] LABS: ALKALINE PHOSPHATASE 71 U/L (45-117); ALT (GPT) 35 U/L (12-78); TOTAL BILIRUBIN ADULT 0.4 MG/DL (0.2-1.0)
[2016-12-14 23:54] LABS: ANION GAP 13 MEQ/L (5-15); AST (GOT) 38 U/L (15-37); BICARBONATE 24.5 MEQ/L (21.0-32.0); BLOOD UREA NITROGEN 11 MG/DL (7-18); CHLORIDE 105 MEQ/L (98-107); GLOMERULAR FILTRATION RATE 66 ML/MIN (>89); POTASSIUM 3.5 MEQ/L (3.5-5.1); SODIUM (NA) 142 MEQ/L (136-145)
[2016-12-14 23:55] LABS: ACETAMINOPHEN LESS THAN 2.0 MCG/ML (10.0-30.0); ALCOHOL 39 MG/DL (0-5)
--- NOTE | 2016-12-15 00:09 | PD ---
HPI Chief Complaint: OD/ Ingestion Time Seen by Provider: 22:51 Travel History International Travel<30 days: No Contact w/Intl Traveler<30days: No Traveled to known affect area: No History of Present Illness HPI 51-year-old male with history of depression here because he claims to have taken about thirty 325mg aspirin about 2 hours prior to arrival. He tells me he did this because he wanted to kill himself. He denies ingesting any other medications. He tells me that it was aspirin and Tylenol. He denies alcohol or illicit drug use. He denies any physical complaints. He is asking for something to eat and drink. PFSH Past Medical History Asthma: No Autoimmune Disease: No Bipolar Disorder: Yes Anxiety: Yes Depression: Yes Heart Rhythm Problems: No Cancer: No Cardiovascular Problems: Yes (HTN) High Cholesterol: No Chest Pain: No Congestive Heart Failure: No COPD: Yes Diabetes: No Diminished Hearing: No Endocrine: No Gastrointestinal Disorders: Yes GERD: Yes (NOT AT THE PRESENT TIME) Genitourinary: No Headaches: No Hepatitis: No Hiatal Hernia: No Heparin Induced Thrombocytopen: No Hypertension: Yes Immune Disorder: No Implanted Vascular Access Dvce: No Kidney Stones: No Medical other: Yes (GERD) Musculoskeletal: No Neurologic: No Psychiatric: No Reproductive: No Respiratory: Yes (COPD) Immunizations Current: Yes Renal Failure: No Seizures: No Sickle Cell Disease: No Sleep Apnea: No Thyroid Disease: No Ulcer: No Past Surgical History Abdominal Surgery: No AICD: No Body Medical Devices: PIN IN RIGHT ANKLE Cardiac Surgery: No Ear Surgery: No Endocrine Surgery: No Eye Surgery: No Genitourinary Surgery: No Gynecologic Surgery: No Joint Replacement: Yes (R knee) Neurologic Surgery: No Oral Surgery: No Pacemaker: No Thoracic Surgery: No Other Surgery: Yes ( ) Social History Alcohol Use: Yes (12 PCK DAILY ) Tobacco Use: Yes (1.5 PPD ) Substance Use: Yes Allergies-Medications (Allergen,Severity, Reaction): Coded Allergies: penicillin G (Unverified Allergy, Severe, CHILDHOOD - DOESN'T REMEMBER, ) 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 SKIN: Focused skin assessment warm/dry. HEAD: Atraumatic. Normocephalic. EYES: Pupils equal and round. No scleral icterus. No injection or drainage. ENT: No nasal bleeding or discharge. Mucous membranes pink and moist. Poor dentition. NECK: Trachea midline. No JVD. CARDIOVASCULAR: Regular rate and rhythm. RESPIRATORY: No accessory muscle use. Clear to auscultation. Breath sounds equal bilaterally. GASTROINTESTINAL: Abdomen soft, non-tender, nondistended. MUSCULOSKELETAL: No obvious deformities. No clubbing. No cyanosis. No edema. NEUROLOGICAL: Awake and alert. No obvious cranial nerve deficits. Motor grossly within normal limits. Normal speech. PSYCHIATRIC: Appropriate mood and affect; insight and judgment normal. Data Data Last Documented VS Vital Signs Date Time Temp Pulse Resp B/P (MAP) Pulse Ox O2 Delivery O2 Flow Rate FiO2 12/15/16 01:04 93 22 175/94 (121) 98 Room Air 12/14/16 22:26 97.8 Orders Orders Complete Blood Count With Diff (12/14/16 22:46) Comprehensive Metabolic Panel (12/14/16 22:46) Electrocardiogram (12/14/16 22:46) Psych Screen (12/14/16 22:46) Drug Screen, Random Urine (12/14/16 22:46) Alcohol (Ethanol) (12/14/16 22:46) Salicylates (Aspirin) (12/14/16 22:46) Tylenol (Acetaminophen) (12/14/16 22:46) Arterial Blood Gas (Abg) (12/14/16 ) Charcoal Active-Sorbitol Liq (Charcoal A (12/14/16 23:00) Drug Screen, Random Urine (12/15/16 00:07) Salicylates (Aspirin) (12/15/16 00:07) Tylenol (Acetaminophen) (12/15/16 00:07) Salicylates (Aspirin) (12/15/16 03:01) Tylenol (Acetaminophen) (12/15/16 03:01) Labs Laboratory Tests Test 12/14/16 22:54 12/14/16 23:00 12/15/16 01:00 Blood Gas Puncture Site RT RADIAL Blood Gas Patient Temperature 98.6 Blood Gas HCO3 23 mmol/L Blood Gas Base Excess -0.5 mmol/L Blood Gas Oxygen Saturation 84 % Arterial Blood pH 7.44 Arterial Blood Partial Pressure CO2 35 mmHg Arterial Blood Partial Pressure O2 76 mmHG Arterial Blood Oxygen Content 18.2 Vol % Arterial Blood Carboxyhemoglobin 11.9 % Arterial Blood Methemoglobin 1.1 % Blood Gas Hemoglobin 15.4 G/DL Oxygen Delivery Device ROOM AIR Blood Gas Inspired Oxygen 21 % White Blood Count 14.9 TH/MM3 Red Blood Count 4.75 MIL/MM3 Hemoglobin 16.1 GM/DL Hematocrit 46.2 % Mean Corpuscular Volume 97.3 FL Mean Corpuscular Hemoglobin 33.8 PG Mean Corpuscular Hemoglobin Concent 34.8 % Red Cell Distribution Width 14.0 % Platelet Count 221 TH/MM3 Mean Platelet Volume 9.3 FL Neutrophils (%) (Auto) 67.4 % Lymphocytes (%) (Auto) 24.9 % Monocytes (%) (Auto) 7.0 % Eosinophils (%) (Auto) 0.2 % Basophils (%) (Auto) 0.5 % Neutrophils # (Auto) 10.0 TH/MM3 Lymphocytes # (Auto) 3.7 TH/MM3 Monocytes # (Auto) 1.0 TH/MM3 Eosinophils # (Auto) 0.0 TH/MM3 Basophils # (Auto) 0.1 TH/MM3 CBC Comment DIFF FINAL Differential Comment Blood Urea Nitrogen 11 MG/DL Creatinine 1.17 MG/DL Random Glucose 89 MG/DL Total Protein 8.0 GM/DL Albumin 4.2 GM/DL Calcium Level 9.5 MG/DL Alkaline Phosphatase 71 U/L Aspartate Amino Transf (AST/SGOT) 38 U/L Alanine Aminotransferase (ALT/SGPT) 35 U/L Total Bilirubin 0.4 MG/DL Sodium Level 142 MEQ/L Potassium Level 3.5 MEQ/L Chloride Level 105 MEQ/L Carbon Dioxide Level 24.5 MEQ/L Anion Gap 13 MEQ/L Estimat Glomerular Filtration Rate 66 ML/MIN Salicylates Level 4.4 MG/DL 4.5 MG/DL Urine Opiates Screen NEG Acetaminophen Level LESS THAN 2.0 MCG/ML LESS THAN 2.0 MCG/ML Urine Barbiturates Screen NEG Urine Amphetamines Screen NEG Urine Benzodiazepines Screen NEG Urine Cocaine Screen NEG Urine Cannabinoids Screen POS Ethyl Alcohol Level 39 MG/DL MDM Medical Decision Making Medical Screen Exam Complete: Yes Emergency Medical Condition: Yes Differential Diagnosis Suicidal ideation, depression, aspirin overdose, coingestion Narrative Course Vital signs reviewed. CBC shows WBC 14.9, hemoglobin 16.1, hematocrit 46.2, platelets 221. CMP is unremarkable. Initial salicylate level is 4.4. No initial Tylenol level is 2.0. Alcohol level is 39. Urine drug screen is positive for marijuana, negative for all other drugs tested. Repeat salicylate level 2 hours after the first as advised by poison control is 4.5. This was not a significant/toxic ingestion. Patient is medically cleared for psychiatric evaluation and disposition by them. Diagnosis Primary Impression: Suicidal ideation Additional Impression: Depression Qualified Codes: F32.9 - Major depressive disorder, single episode, unspecified Mert Baptiste MD Dec 15, 2016 00:09
[2016-12-15 01:04] VITALS: BP 175/94; PULSE 93; RESP 22; O2SAT 98
[2016-12-15 06:22] VITALS: BP 161/85; PULSE 85; RESP 16; O2SAT 96
[2016-12-15 13:41] VITALS: BP 173/77; PULSE 81; RESP 20; O2SAT 96
[2016-12-15] MEDS ORDERED: PRIL2.5P (16:02)
[2016-12-15 16:15] VITALS: BP 146/77; PULSE 75; RESP 18; TEMP 98.4; O2SAT 97
[2016-12-15 17:53] VITALS: BP 137/86; PULSE 73; RESP 18; O2SAT 97
--- NOTE | 2016-12-16 00:45 | EKG ---
Date Performed: 12/14/2016 Time Performed: 22:49:04 PTAGE: 51 years EKG: SINUS TACHYCARDIA INFERIOR MYOCARDIAL INFARCTION ANTEROLATERAL MYOCARDIAL INFARCTION ABNORM AL ECG PREVIOUS TRACING : 07/12/2016 16.44 Compared to the previous tracing, rate has increased DOCTOR: Layton Villalpando Interpretating Date/Time 12/16/2016 00:44:27
[2016-12-16 06:24] VITALS: BP 149/90; PULSE 84; RESP 18; TEMP 97.7; O2SAT 99
--- NOTE | 2016-12-16 09:45 | EKG ---
Date Performed: 12/15/2016 Time Performed: 16:55:14 PTAGE: 51 years EKG: Sinus rhythm INTRAVENTRICULAR CONDUCTION DELAY INFERIOR MYOCARDIAL INFARCTION ANTEROLATERAL MYOCARDIAL INFARCTION PREVIOUS TRACING : 12/14/2016 22.49 DOCTOR: Peter Martinez Interpretating Date/Time 12/16/2016 09:43:17
[2016-12-16] MEDS ORDERED: ALUMINUM/MAGNESIUM/SIMETH 30 ML CUP PO PRN (11:00)
[2016-12-16] MEDS ORDERED: LORazepam 0.5 MG TAB PO PRN (11:00)
[2016-12-16] MEDS ORDERED: MAGNESIUM HYDROXIDE SUSP 30 ML CUP PO PRN (11:00)
[2016-12-16] MEDS ORDERED: ACETAMINOPHEN 325 MG TAB PO PRN (11:00)
[2016-12-16] MEDS ORDERED: LORazepam 2 MG/ML VIAL IM PRN ×2 (11:00)
[2016-12-16] MEDS ORDERED: traZODone HCL 50 MG TAB PO PRN (11:00)
--- NOTE | 2016-12-16 11:12 | HHI.HP ---
Provisional Diagnosis Admission Date [place] I. Major depression, single episode, severe, without psychotic features Certification of Person's Competence To Provide Express and Informed Consent I have personally examined Claudy Maciel , a person being served at [facility] on, Dec 16, 2016 11:00. Express and informed consent means consent voluntarily given in writing, by a competent person, after sufficient explanation and disclosure of the subject matter involved to enable the person to make a knowing and willful decision without any element of force, fraud, deceit, duress, or other form of constraint or coercion. This person is 18 years of age or older, is not now known to be incompetent to consent to treatment with a guardian advocate, and does not have a health care surrogate or proxy currently making medical treatment decisions. I have found this person to be one of the following: [x] Competent to provide express and informed consent, as defined above, for voluntary admission to this facility and is competent to provide express and informed consent for treatment. He/she has the consistent capacity to make well reasoned, willful, and knowing decisions concerning his or her medical or mental health treatment. The person fully and consistently understands the purpose of the admission for examination/placement and is fully capable of personally exercising all rights [place] Incompetent to provide express and informed consent to voluntary admission, and this is incompetent to provide express and informed consent to treatment. The person must be transferred to involuntary status and a petition for a guardian advocate filed with the Circuit Court. [] Refusing to provide express and informed consent to voluntary admission but is competent to provide express and informed consent for treatment. The person must be discharged or transferred to involuntary status. Form shall be completed within 24 hours of a person's arrival at the receiving facility and filed in the clinical record of each person: 1. Admitted on a voluntary basis 2. Permitted to provide express and informed consent to his/her own treatment 3. Allowed to transfer from involuntary to voluntary status 4. Prior to permitting a person to consent to his or her own treatment after having been previously found incompetent to consent to treatment. History of Present Illness Capacity: Has Capacity HPI 51-year-old male under a Yoo act initiated by [place] ED physician after overdosing on aspirin. Patient reported taking approximately 30 aspirin tablets (325 mg) 2 hours before bringing himself to the emergency department. When asked why he overdosed on aspirin, the patient admitted he wanted to kill himself. However, he was not very forthcoming regarding why he felt suicidal. He does admit to multiple symptoms of depression, including depressed mood, anhedonia, diminished energy, diminished self-esteem, anxiety, insomnia, social withdrawal, feelings of hopelessness and helplessness as well as suicidal ideation with plan and attempt. The patient appears to have a possible psychiatric history and is noted to be on Geodon 120 mg per day. He is not complaining of auditory or visual hallucinations or delusional thinking at this time. However he does admit to being on Social Security disability. He does not have a history of alcoholism or substance abuse. According to the medical record, reviewed by this physician, his sister is his Social Security payee. Patient currently lives in an apartment by himself. His depressive symptoms have been going on longer than a month. Review of Systems Except as stated in HPI: all other systems reviewed are Neg Past Psych History Psychological trauma history Denied for psychological trauma Violence risk - others (6 mos) Minimal Violence risk - self (6 mos) High Substance Abuse History Drugs/Alcohol past 12 months Denied Past Family Social History Coded Allergies: penicillin G (Unverified Allergy, Severe, CHILDHOOD - DOESN'T REMEMBER, 12/15/16) Per pt. 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; (arm) - 12/2014 Active Scripts Amlodipine (Norvasc) 5 Mg Tab, 5 MG PO DAILY for Blood Pressure Management, #30 TAB Prov:Jp Pablo MD 07/17/16 Reported Medications Omeprazole Magnesium (Prilosec) 2.5 Mg Pow 12/15/16 Fluoxetine (Prozac) 40 Mg Cap, 40 MG PO DAILY, #30 CAP 0 Refills 12/14/16 Lurasidone (Latuda) 120 Mg Tab, 120 MG PO DAILY, #30 TAB 0 Refills 12/14/16 Discontinued Reported Medications Lorazepam (Ativan) 1 Mg Tab, 1 MG PO Q8H Y for ANXIETY AND/OR AGITATION, TAB 0 Refills 07/20/16 Discontinued Scripts Aripiprazole (Abilify) 2 Mg Tab, 2 MG PO HS, #30 TAB Prov:Jp Pablo MD 07/17/16 Fluoxetine (Prozac) 10 Mg Cap, 10 MG PO DAILY, #30 CAP Prov:Jp Pablo MD 07/17/16 Current Medications Medications (Trade) Dose Ordered Sig/Geovanni Route Start Time Stop Time Status Last Admin (Ativan) 1 mg Q6H PRN PO 12/16/16 11:00 UNV (Ativan Inj) 1 mg Q6H PRN IM 12/16/16 11:00 UNV (Ativan) 0.5 mg Q12H PRN PO 12/16/16 11:00 UNV (Ativan Inj) 0.5 mg Q12H PRN IM 12/16/16 11:00 UNV (Tylenol) 650 mg Q4H PRN PO 12/16/16 11:00 UNV (Milk Of Magnesia Liq) 30 ml DAILY PRN PO 12/16/16 11:00 UNV (Mag-Al Plus Susp Liq) 30 ml Q6H PRN PO 12/16/16 11:00 UNV (Desyrel) 50 mg HS PRN PO 12/16/16 11:00 UNV Family History Positive for mood and anxiety disorders. Social History Patient is unemployed and disabled from work. 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 He denies a history of alcoholism or substance abuse. He receives Social Security disability and Medicare. He was followed by Dr. Morales, a psychiatrist in the [place] area, but has not been seen by a psychiatrist in many months. His sister is supposedly his payee. Patient's Strengths (min. 2) Verbal and has access to healthcare. Physical Exam GENERAL: SKIN: Warm and dry. HEAD: Normocephalic. EYES: No scleral icterus. No injection or drainage. NECK: Supple, trachea midline. No JVD or lymphadenopathy. CARDIOVASCULAR: Regular rate and rhythm without murmurs, gallops, or rubs. RESPIRATORY: Breath sounds equal bilaterally. No accessory muscle use. GASTROINTESTINAL: Abdomen soft, non-tender, nondistended. MUSCULOSKELETAL: No cyanosis, or edema. BACK: Nontender without obvious deformity. No CVA tenderness. Vital Signs Vital Signs Date Time Temp Pulse Resp B/P (MAP) Pulse Ox O2 Delivery O2 Flow Rate FiO2 12/16/16 06:24 97.7 84 18 149/90 (109) 99 12/15/16 17:53 Room Air Lab Results Test 12/15/16 17:26 Salicylates Level 4.1 MG/DL Mental Status Examination Speech: Unremarkable Orientation: x3 Memory: Unremarkable Thought Process: Organized, Goal Directed Thought Content: Unremarkable Hallucination Type: None Attention and Concentration: Abnormal Suicidal Ideation: Yes Previous Suicide Attempts: Yes Homicidal Ideation: No Previous Homicide Attempts: No Insight: Fair Judgment: Impulsive Affect: Anxious, Sad Mood: Sad, Anxious Motor Activity: Normal gait Assessment & Plan Problem List: (1) Severe major depression, single episode, without psychotic features ICD Codes: F32.2 - Major depressive disorder, single episode, severe without psychotic features Status: Acute Assessment & Plan Estimated LOS: days. 51-year-old male placed under a Yoo act by [place] ED physician after he overdosed on aspirin. Patient apparently has a psychiatric history although has not been treated recently. He is supposed to be taking Latuda. He could not give an explanation as to why he overdosed on aspirin except for the fact that he wanted to kill himself. Patient is felt to be at very high risk for self-harm and therefore is being admitted for evaluation and treatment. This physician started the patient back on his antipsychotic/mood stabilizing medication. A consult was placed to the hospitalists as the patient has a history of hypertension, GERD and a white blood cell count of almost 15. This physician furthermore ordered both a CBC and comprehensive metabolic panel to determine if infectious or metabolic process was causing or contributing to the patient's depressive state. Additionally, we are checking his thyroid stimulating hormone, vitamin B-12 and vitamin D to ascertain if any deficiencies in these areas are causing or contributing to his depression. He will receive an EKG to assess his cardiac conduction status as he is on psychotropic medicines which can adversely affect his cardiac conduction. This physician reviewed the patient's electronic medical record, spoke with the patient's nurse and is involving case management and the gathering of information and assistance with discharge planning. Jp Pablo MD Dec 16, 2016 11:12
[2016-12-16] MEDS: LORazepam 1 MG TAB PO PRN (15:50)
[2016-12-17 06:04] VITALS: BP 160/80; PULSE 51; RESP 16; TEMP 99; O2SAT 96
[2016-12-17] MEDS: LURASIDONE 40 MG TAB PO SCH ×2 (09:56→10:16)
[2016-12-17] MEDS: amLODIPine BESYLATE 5 MG TAB PO SCH ×2 (09:57→10:16)
[2016-12-17 10:00] VITALS: BP 130/77; PULSE 81; RESP 17; O2SAT 99
[2016-12-17] MEDS ORDERED: PNEUMOCOCCAL POLYVALENT INJ 25 MCG/0.5 ML SYR IM ONE (10:00)
[2016-12-17] MEDS ORDERED: INFLUENZA VIRUS VACCINE (QUADRIVALENT) 0.5 ML SYR IM ONE (10:00)
[2016-12-17] MEDS: LORazepam 1 MG TAB PO PRN ×2 (11:04→21:40)
[2016-12-17 11:07] LABS: AUTOMATED NEUTROPHIL # 3.8 TH/MM3 (1.8-7.7); BASOPHIL % 0.6 % (0.0-2.0); EOSINOPHIL # 0.2 TH/MM3 (0-0.4); EOSINOPHIL % 2.4 % (0.0-4.0); HEMATOCRIT 43.8 % (39.0-51.0); HEMO FLAGS DIFF FINAL; LYMPH % 32.2 % (9.0-44.0); LYMPHOCYTE # 2.2 TH/MM3 (1.0-4.8); MEAN CELL VOLUME 96.7 FL (80.0-100.0); MEAN CORPUSCULAR HEMOGLOBIN 34.5 PG (27.0-34.0); MEAN CORPUSCULAR HGB CONC 35.7 % (32.0-36.0); MONO % 8.7 % (0.0-8.0); NEUT % 56.1 % (16.0-70.0); PLATELET COUNT 185 TH/MM3 (150-450); RED BLOOD COUNT 4.53 MIL/MM3 (4.50-5.90); RED CELL DISTRIBUTION WIDTH 13.2 % (11.6-17.2); WHITE BLOOD COUNT 6.7 TH/MM3 (4.0-11.0)
[2016-12-17 11:38] LABS: ALT (GPT) 28 U/L (12-78); ANION GAP 7 MEQ/L (5-15); AST (GOT) 21 U/L (15-37); BLOOD UREA NITROGEN 15 MG/DL (7-18); CHLORIDE 107 MEQ/L (98-107); GLOMERULAR FILTRATION RATE 103 ML/MIN (>89); SODIUM (NA) 140 MEQ/L (136-145)
[2016-12-17 12:04] LABS: ALKALINE PHOSPHATASE 73 U/L (45-117); HDL CHOLESTEROL 34.6 MG/DL (40.0-60.0); LDL CHOLESTEROL 108 MG/DL (0-99); TOTAL BILIRUBIN ADULT 0.2 MG/DL (0.2-1.0)
[2016-12-17 12:56] LABS: HEMOGLOBIN A1a 1.1 %; HEMOGLOBIN Ao 84.3 %; HEMOGLOBIN LA1C 2.6 %
[2016-12-17 13:36] VITALS: BP_SYST 116; BP_SYST 117; BP_DIAS 56; BP_DIAS 58; PULSE 72; RESP 17; TEMP 97.8; O2SAT 98
--- NOTE | 2016-12-17 13:47 | HHI.PYPN ---
Subjective Remarks Patient was seen and case discussed with nursing. Patient says his mood is improving and he no longer has suicidal ideation intent or plan. Continues to feel hopeless for the future. Mood is depressed. Affect is restricted. EKG was reviewed from 2 days ago which shows a possible previous IA and a prolonged QTC in the 430s. Patient says he is not aware of any cardiac disease but did once see a teletype adjuster inpatient who noted abnormal rhythm. Patient denies any chest pain, shortness of breath, nausea or vomiting Objective Alert: Yes [place]: Person, Place, Date Mood: Calm, Depressed Affect: Blunted Memory Intact: Immediate (grossly intact) Hallucinations: Other Delusions: No Delusion Type: Other (denies) Suicidal: Ideation (denies) Homicidal: Ideation (denies) Insight/Judgment Fair Labs Test 12/17/16 10:23 White Blood Count 6.7 TH/MM3 Red Blood Count 4.53 MIL/MM3 Hemoglobin 15.6 GM/DL Hematocrit 43.8 % Mean Corpuscular Volume 96.7 FL Mean Corpuscular Hemoglobin 34.5 PG Mean Corpuscular Hemoglobin Concent 35.7 % Red Cell Distribution Width 13.2 % Platelet Count 185 TH/MM3 Mean Platelet Volume 9.5 FL Neutrophils (%) (Auto) 56.1 % Lymphocytes (%) (Auto) 32.2 % Monocytes (%) (Auto) 8.7 % Eosinophils (%) (Auto) 2.4 % Basophils (%) (Auto) 0.6 % Neutrophils # (Auto) 3.8 TH/MM3 Lymphocytes # (Auto) 2.2 TH/MM3 Monocytes # (Auto) 0.6 TH/MM3 Eosinophils # (Auto) 0.2 TH/MM3 Basophils # (Auto) 0.0 TH/MM3 CBC Comment DIFF FINAL Differential Comment Blood Urea Nitrogen 15 MG/DL Creatinine 0.79 MG/DL Random Glucose 93 MG/DL Total Protein 6.7 GM/DL Albumin 3.2 GM/DL Calcium Level 9.2 MG/DL Alkaline Phosphatase 73 U/L Aspartate Amino Transf (AST/SGOT) 21 U/L Alanine Aminotransferase (ALT/SGPT) 28 U/L Total Bilirubin 0.2 MG/DL Sodium Level 140 MEQ/L Potassium Level 4.0 MEQ/L Chloride Level 107 MEQ/L Carbon Dioxide Level 26.0 MEQ/L Anion Gap 7 MEQ/L Estimat Glomerular Filtration Rate 103 ML/MIN Hemoglobin A1c 5.7 % Triglycerides Level 336 MG/DL Cholesterol Level 210 MG/DL LDL Cholesterol 108 MG/DL HDL Cholesterol 34.6 MG/DL Cholesterol/HDL Ratio 6.06 RATIO Vitamin B12 Level 389 PG/ML 25-Hydroxy Vitamin D Total 28.3 ng/ML Thyroid Stimulating Hormone 3rd Gen 1.610 uIU/ML Vitals/IOs Vital Signs Date Time Temp Pulse Resp B/P (MAP) Pulse Ox O2 Delivery O2 Flow Rate FiO2 12/17/16 13:36 97.8 72 17 116/56 (76) 98 117/58 (77) 12/15/16 17:53 Room Air Assessment & Plan Problem List: (1) Severe major depression, single episode, without psychotic features ICD Codes: F32.2 - Major depressive disorder, single episode, severe without psychotic features Status: Acute Assessment & Plan Repeat EKG, stat medical consult, stat enzymes, chest x-ray, DC trazodone because it can increase QT interval, hold latuda for now and consider lower dose tomorrow given antipsychotics can increase QTC Justification for Cont. Inpt. Patient would decompensate in a less restrictive setting Vance Mccauley DO Dec 17, 2016 13:47
--- NOTE | 2016-12-17 14:21 | RADRPT ---
EXAM DATE/TIME: 12/17/2016 14:14 [facility] COMPARISON: No previous studies available for comparison. INDICATIONS : Mid sternal chest pains with abnormal EKG. MEDICAL HISTORY : None. SURGICAL HISTORY : None. ENCOUNTER: Initial ACUITY: 1 day PAIN SCORE: 5/10 LOCATION: Bilateral chest FINDINGS: PA and lateral views of the chest demonstrate the lungs to be symmetrically aerated without evidence of mass, infiltrate or effusion. The cardiomediastinal contours are unremarkable. Osseous structure s are intact. CONCLUSION: No acute disease. Everotn Boogie MD FACR on December 17, 2016 at 14:19 Board Certified Radiologist. This report was verified electronically.
--- NOTE | 2016-12-17 15:23 | PD.CONS ---
[facility] Requested By Vance Mccauley MD Reason for Consult Medical Management Primary Care Physician Everton Barrett DO Diagnoses: History of Present Illness Primary Care Physician Everton Barrett DO Admission Diagnosis intentional overdose, prolonged QTc interval This is a pleasant 50 y/o male with Depression, Schizophrenia, previous suicidal attempts, on every admission his QTC interval has been an Issue, The patient otherwise denies any chest pain , short of breath, palpitations, dizziness, nausea, vomiting, headache, fevers, chills, dysuria, abdominal pain, diarrhea, hematemesis, melena. On this Opportunity the patient was hospitalized due to that he took thirty 325 mg Aspirin two hours previous to arrival, also said he took Tylenol, s. He tells me that it was aspirin and Tylenol. I had the opportunity to discuss with nurse and with patient, no Cardiac past history and also no chest pain completely asymptomatic Troponin I negative for acute coronary artery disease. Review of Systems Constitutional: DENIES: Fever, Chills, Change in appetite Endocrine: DENIES: Heat/cold intolerance Eyes: DENIES: Blurred vision, Eye pain Except as stated in HPI: all other systems reviewed are Neg Past Family Social History Allergies: Coded Allergies: penicillin G (Unverified Allergy, Severe, CHILDHOOD - DOESN'T REMEMBER, 12/15/16) Per pt. 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 Reported Medications Reported Meds & Active Scripts Active Norvasc (Amlodipine Besylate) 5 Mg Tab 5 Mg PO DAILY Reported Prilosec (Omeprazole Magnesium) 2.5 Mg Pow Prozac (Fluoxetine HCl) 40 Mg Cap 40 Mg PO DAILY Latuda (Lurasidone) 120 Mg Tab 120 Mg PO DAILY Active Ordered Medications Current Medications Medications (Trade) Dose Ordered Sig/Geovanni Route Start Time Stop Time Status Last Admin (Ativan) 1 mg Q6H PRN PO 12/16/16 11:00 12/17/16 11:04 (Ativan Inj) 1 mg Q6H PRN IM 12/16/16 11:00 (Tylenol) 650 mg Q4H PRN PO 12/16/16 11:00 (Milk Of Magnesia Liq) 30 ml DAILY PRN PO 12/16/16 11:00 (Mag-Al Plus Susp Liq) 30 ml Q6H PRN PO 12/16/16 11:00 (Norvasc) 5 mg DAILY PO 12/17/16 09:00 12/17/16 10:16 (Latuda) 120 mg DAILY PO 12/17/16 09:00 Future Hold 12/17/16 10:16 Family History Positive for diabetes and hypertension. Social History Alcohol abuse 12 Pack daily Tobacco dependence one and a half packs daily The patient is and has 2 children. The patient lives by himself. Physical Exam Vital Signs Vital Signs Date Time Temp Pulse Resp B/P (MAP) Pulse Ox O2 Delivery O2 Flow Rate FiO2 12/17/16 13:36 97.8 72 17 116/56 (76) 98 117/58 (77) 12/17/16 10:00 81 17 130/77 (94) 99 12/17/16 06:04 99.0 51 16 160/80 (106) 96 Physical Exam GENERAL: Obesity no acute distress. SKIN: No rashes, ecchymoses or lesions. Cool and dry. HEAD: Atraumatic. Normocephalic. No temporal or scalp tenderness. EYES: Pupils equal round and reactive. Extraocular motions intact. No scleral icterus. No injection or drainage. ENT: Nose without bleeding, purulent drainage or septal hematoma. Throat without erythema, tonsillar hypertrophy or exudate. Uvula midline. Airway patent. NECK: Trachea midline. No JVD or lymphadenopathy. Supple, nontender, no meningeal signs. CARDIOVASCULAR: Regular rate and rhythm without murmurs, gallops, or rubs. RESPIRATORY: Clear to auscultation. Breath sounds equal bilaterally. No wheezes , rales, or rhonchi. GASTROINTESTINAL: Abdomen soft, non-tender, nondistended. No hepato-splenomegaly , or palpable masses. No guarding. MUSCULOSKELETAL: Extremities without clubbing, cyanosis, or edema. No joint tenderness, effusion, or edema noted. No calf tenderness. Negative Homans sign bilaterally. NEUROLOGICAL: Awake and alert. Cranial nerves II through XII intact. Motor and sensory grossly within normal limits. Five out of 5 muscle strength in all muscle groups. Normal speech. Laboratory Laboratory Tests Test 12/17/16 10:23 White Blood Count 6.7 Red Blood Count 4.53 Hemoglobin 15.6 Hematocrit 43.8 Mean Corpuscular Volume 96.7 Mean Corpuscular Hemoglobin 34.5 Mean Corpuscular Hemoglobin Concent 35.7 Red Cell Distribution Width 13.2 Platelet Count 185 Mean Platelet Volume 9.5 Neutrophils (%) (Auto) 56.1 Lymphocytes (%) (Auto) 32.2 Monocytes (%) (Auto) 8.7 Eosinophils (%) (Auto) 2.4 Basophils (%) (Auto) 0.6 Neutrophils # (Auto) 3.8 Lymphocytes # (Auto) 2.2 Monocytes # (Auto) 0.6 Eosinophils # (Auto) 0.2 Basophils # (Auto) 0.0 CBC Comment DIFF FINAL Differential Comment Blood Urea Nitrogen 15 Creatinine 0.79 Random Glucose 93 Total Protein 6.7 Albumin 3.2 Calcium Level 9.2 Alkaline Phosphatase 73 Aspartate Amino Transf (AST/SGOT) 21 Alanine Aminotransferase (ALT/SGPT) 28 Total Bilirubin 0.2 Sodium Level 140 Potassium Level 4.0 Chloride Level 107 Carbon Dioxide Level 26.0 Anion Gap 7 Estimat Glomerular Filtration Rate 103 Hemoglobin A1c 5.7 Triglycerides Level 336 Cholesterol Level 210 LDL Cholesterol 108 HDL Cholesterol 34.6 Cholesterol/HDL Ratio 6.06 Vitamin B12 Level 389 25-Hydroxy Vitamin D Total 28.3 Thyroid Stimulating Hormone 3rd Gen 1.610 Result Diagram: 12/17/16 1023 12/17/16 1023 Imaging Last Impressions Chest X-Ray 12/17/16 0000 Signed Impressions: Service Date/Time: Saturday, December 17, 2016 14:14 - CONCLUSION: No acute disease. Everton Boogie MD FACR Assessment and Plan Assessment and Plan 1. Major Depression, recurrent, chronic Psychiatry specialist following 2. Intentional overdose of drug Aspirin/Suicide attempt continue Psychiatric intervention. 3. Schizoaffective disorder 4. Hypertension controlled on Home medicines 5. Ruled out Acute Coronary Artery disease, the patient has abnormal ECG with Q wave changes, Intraventricular conduction delay, is sinus rhythm, totally asymptomatic and with Troponin I level below 0.02. 6. Mild Hyperlipidemia needs 3 to 6 months of Lifestyle modification. 7. Obesity strongly recommended diet and exercise. No further recommendations at this time, he will need to follow with his PCP at discharge. signing off the case. PPI for GI prophylaxis. SCDs for DVT prophylaxis Code Status Full code Code Status Full code. Discussed Condition With patient and nurse Florentin Daly MD Dec 17, 2016 15:23
[2016-12-17 16:19] LABS: CREATINE KINASE 206 U/L (39-308)
[2016-12-17 16:31] LABS: CKMB 1.7 NG/ML (0.5-3.6)
[2016-12-17 23:02] VITALS: BP 130/71; PULSE 77; RESP 16; TEMP 97.6; O2SAT 96
[2016-12-18 05:44] VITALS: BP 133/71; PULSE 61; RESP 17; TEMP 98.8; O2SAT 97
[2016-12-18] MEDS: LORazepam 1 MG TAB PO PRN ×2 (11:10→20:30)
--- NOTE | 2016-12-18 16:27 | HHI.PYPN ---
Subjective Remarks Patient seen for follow up, chart reviewed. Patient found lying in hospital but was able to wake up to engage in interview today. Patient states that he is physically feeling better today patient reports he was previously on 220 mg by mouth daily and trazodone 50 mg was helping her sleep but states that his medications were held yesterday as there was concern with an EKG reading. Patient reports that his mood has been "better" after admission to the hospital. Patient states that his main stressor that led to his recent overdose was having broken up with his girlfriend. Patient states that he had 2 -3 prior suicide attempts last being December last year. Overdose. Patient reports daily and drinking well, continues report decreased energy but no problems with appetite and concentration. Patient states that he no longer has suicidal ideations last time being when he first arrived to the hospital. Patient reports that upon discharge he plans on returning back home states that his primary support system his sister Jamarcus Delcid [phone]. Patient this time denies any manic or psychotic symptoms. Patient states that upon discharge he plans on continuing follow-up appointments for outpatient mental health services at [facility]. Review of Systems Except as stated in HPI: all other systems reviewed are Neg Objective Alert: Yes [place]: Person, Place, Date Mood: Calm, Depressed Affect: Restricted Memory Intact: Immediate (grossly intact) Hallucinations: Other (denies) Delusions: No Delusion Type: Other (denies) Suicidal: Ideation (denies) Homicidal: Ideation (denies) Insight/Judgment Limited insight, impulse control and judgment Vitals/IOs Vital Signs Date Time Temp Pulse Resp B/P (MAP) Pulse Ox O2 Delivery O2 Flow Rate FiO2 12/18/16 05:44 98.8 61 17 133/71 (91) 97 12/15/16 17:53 Room Air Assessment & Plan Problem List: (1) Severe major depression, single episode, without psychotic features ICD Codes: F32.2 - Major depressive disorder, single episode, severe without psychotic features Status: Acute Assessment & Plan Patient this time continues to report some depressive symptoms but reports feeling better since admission. Patient was about a by medical team yesterday due to an abnormal EKG but was cleared medically. Patient will be started to Dilaudid 20 mg by mouth daily as well as trazodone 50 mg at bedtime for insomnia. We'll continue to monitor QTC while on this current regimen. Monitor for medication response adverse drug reactions. Supportive psychotherapy provided. Discharge planning in progress Justification for Cont. Inpt. At risk for decompensation if it lower level of care Krystian Lowry MD Dec 18, 2016 16:27
[2016-12-18 18:00] VITALS: BP 114/81; PULSE 118; RESP 18; TEMP 97.8; O2SAT 98
--- NOTE | 2016-12-18 20:17 | EKG ---
Date Performed: 12/17/2016 Time Performed: 13:14:45 PTAGE: 51 years EKG: Sinus rhythm POSSIBLE LATERAL MYOCARDIAL INFARCTION , OF INDETERMINATE AGE INFERIOR MYOCARDIAL INFARCTION , PROBA MICHAEL OLD ABNORMAL ECG PREVIOUS TRACING : 12/15/2016 16.55 DOCTOR: Easton Wilkinson Interpretating Date/Time 12/18/2016 20:14:06
[2016-12-18] MEDS: traZODone HCL 50 MG TAB PO SCH (20:30)
[2016-12-19 06:44] VITALS: BP 124/84; PULSE 72; RESP 18; TEMP 97.5; O2SAT 97
[2016-12-19] MEDS: amLODIPine BESYLATE 5 MG TAB PO SCH (09:25)
[2016-12-19] MEDS: LURASIDONE 40 MG TAB PO SCH (09:26)
[2016-12-19] MEDS: LORazepam 1 MG TAB PO PRN ×3 (09:31→22:21)
--- NOTE | 2016-12-19 14:09 | HHI.PYPN ---
Subjective Remarks Patient seen for follow up, chart reviewed. Patient found lying on hospital bed , calm and cooperative with interview. Patient states that his baseline "good" and was hoping to be discharged tomorrow as he is been feeling much better. Patient was restarted on his medicines yesterday and reports tolerating medication well with no adverse drug reactions. Patient denies feeling depressed at this time stating that he feeling much better since having been admitted to the hospital. Patient states that he would like to continue follow- up with at [facility]. At this time denies SI, HI, AVH or delusions. Review of Systems Except as stated in HPI: all other systems reviewed are Neg Objective Alert: Yes [place]: Person, Place, Date Mood: Calm Affect: Restricted (more reactive today) Memory Intact: Immediate (grossly intact) Hallucinations: Other (denies) Delusions: No Delusion Type: Other (denies) Suicidal: Ideation (denies) Homicidal: Ideation (denies) Insight/Judgment Fair insight, impulse control and judgment Vitals/IOs Vital Signs Date Time Temp Pulse Resp B/P (MAP) Pulse Ox O2 Delivery O2 Flow Rate FiO2 12/19/16 06:44 97.5 72 18 124/84 (97) 97 12/15/16 17:53 Room Air Intake and Output 12/19/16 12/19/16 12/20/16 08:00 16:00 00:00 Intake Total 240 ml Balance 240 ml Assessment & Plan Problem List: (1) Severe major depression, single episode, without psychotic features ICD Codes: F32.2 - Major depressive disorder, single episode, severe without psychotic features Status: Acute Assessment & Plan Patient at this time denies any depressive symptoms, denies any suicidal ideations reports tolerating medications well. Patient has reported having an apartment which he lives in and agreed to follow up with outpatient appointments for continuity of care. Patient likely for discharge tomorrow with outpatient follow-up and services. Continue current treatment discharge planning in progress Justification for Cont. Inpt. At risk for decompensation if it lower level of care Krystian Lowry MD Dec 19, 2016 14:09
[2016-12-19 18:34] VITALS: BP 146/76; PULSE 81; RESP 18; TEMP 97.6; O2SAT 97
[2016-12-19] MEDS: traZODone HCL 50 MG TAB PO SCH (21:00)
[2016-12-20 06:27] VITALS: BP 156/71; PULSE 68; RESP 18; TEMP 98; O2SAT 97
[2016-12-20] MEDS: LURASIDONE 40 MG TAB PO SCH (08:32)
[2016-12-20] MEDS: amLODIPine BESYLATE 5 MG TAB PO SCH (08:32)
[2016-12-20] MEDS: LORazepam 1 MG TAB PO PRN (10:00)
[2016-12-20] MEDS ORDERED: LURA120T PO (11:09)
[2016-12-20] MEDS ORDERED: AMLO5 PO (11:09)
[2016-12-20] MEDS ORDERED: TRAZ50TA12 PO (11:09)
--- NOTE | 2016-12-20 15:33 | HHI.DS ---
Psychiatry Discharge Summary Inpatient Psychiatric care?: Yes Advance Directive: No Reason Not Provided: declined Mental Health AdvanceDirective: No Health Care Proxy: No Admission Admission Date Dec 16, 2016 at 10:54 Admission Diagnosis: (1) Major depression, recurrent, chronic ICD Code: F33.9 - Major depressive disorder, recurrent, unspecified Brief History 51-year-old male under a [employer] act initiated by [facility] ED physician after overdosing on aspirin. Patient reported taking approximately 30 aspirin tablets (325 mg) 2 hours before bringing himself to the emergency department. When asked why he overdosed on aspirin, the patient admitted he wanted to kill himself. However, he was not very forthcoming regarding why he felt suicidal. He does admit to multiple symptoms of depression, including depressed mood, anhedonia, diminished energy, diminished self-esteem, anxiety, insomnia, social withdrawal, feelings of hopelessness and helplessness as well as suicidal ideation with plan and attempt. The patient appears to have a possible psychiatric history and is noted to be on Geodon 120 mg per day. He is not complaining of auditory or visual hallucinations or delusional thinking at this time. However he does admit to being on Social Security disability. He does not have a history of alcoholism or substance abuse. According to the medical record, reviewed by this physician, his sister is his Social Security payee. Patient currently lives in an apartment by himself. His depressive symptoms have been going on longer than a month. Tobacco Use In Past 30 Days: 5 or More Cigarettes/Day Alcohol Use: 2-3 Times Per Week Hospital Course Patient is a 51-year-old man, domiciled, unemployed on disability benefits, past psychiatric history of schizophrenia, depression, alcohol use disorder, multiple psychiatric hospitalizations, last hospitalization was here at [facility] on June 2016, he was under the care of Dr. Pablo, has been following up in a [employer] act, he has history of suicidal attempts, also self cutting behavior without SI, history of aggressive behavior and incarcerations, medical history of hypertension, who came to the hospital under a [place] act initiated by [facility] ED physician after overdosing on aspirin. Patient was transferred to the inpatient psychiatry unit for further evaluation and management. Patient was restarted on lurazodone 120 mg 120 mg by mouth daily along with trazodone 50 mg at bedtime. During admission patient had another EKG which hospitalist was consulted for further evaluation. Patient had cardio workup which was negative. Patient was resumed on the resident on and trazodone at that he was cleared medically. Patient responded well to re-initiation of medications, with stable mood, no longer endorses suicidal ideations and was future oriented. Upon discharge patient stated feeling good, expressed wanting to continue treatment and adhere to outpatient follow up for continuity of care. Supportive psychotherapy provided. Patient advised to call 911 or go to nearest ED in case of emergency. Results Blood Pressure 156 / 71 Vital Signs Date Time Temp Pulse Resp B/P (MAP) Pulse Ox O2 Delivery O2 Flow Rate FiO2 12/20/16 06:27 98.0 68 18 156/71 (99) 97 Laboratory Tests Test 12/17/16 15:43 Troponin I LESS THAN 0.02 NG/ML Laboratory Results Test 12/17/16 10:23 Cholesterol Level 210 MG/DL (120-200) HDL Cholesterol 34.6 MG/DL (40.0-60.0) Hemoglobin A1c 5.7 % (4.3-6.0) LDL Cholesterol 108 MG/DL (0-99) Triglycerides Level 336 MG/DL (42-150) Summary of Procedures None Imaging Last Impressions Chest X-Ray 12/17/16 0000 Signed Impressions: Service Date/Time: Saturday, December 17, 2016 14:14 - CONCLUSION: No acute disease. Everton Boogie MD FACR Pending results at discharge: No Medications # of Antipsychotic meds at D/C: 1 Approp Antipsych med options 1 - Minimum of three failed multiple trials of monotherapy. 2 - Documented plan to taper to monotherapy due to previous use of multiple meds OR cross-taper in progress at D/C. 3 - Documentation of augmentation of Clozapine. 4 - Justification other than those listed in allowable values 1-3, document here : Discharge Discharge Date: Dec 20, 2016 Discharge Diagnosis: (1) Major depression, recurrent, chronic Diagnosis: Principal ICD Code: F33.9 - Major depressive disorder, recurrent, unspecified Status: Acute Mental Status Exam at Disch Appearance/Behavior: appears stated age, obese, in casual clothing, noted to be calm and cooperative with interview, fair eye contact Speech: normal rate, tone and prosody Mood: "good" Affect: euthymic TP: linear, future oriented TC: denies SI, HI, AVH or delusions Insight/Impulse control/Judgment: Fair Alert and oriented x 3 Pt Condition on Discharge: Stable Discharge Disposition: Discharge Home Discharge Instructions Diet Instructions: As Tolerated, No Restrictions Activities you can perform: Regular-No Restrictions Scheduled Appointment: [facility] Appointment Date: Dec 20, 2016 Appointment Time: 200 Discharge Time > 30 minutes Discharge/Advance Care Plan Health Problems: (1) Severe major depression, single episode, without psychotic features Goals to promote your health * To prevent worsening of your condition and complications * To maintain your health at the optimal level Directions to meet your goals Take your medications as prescribed Follow your dietary instruction Follow activity as directed Keep your appointments as scheduled Take your immunizations and boosters as scheduled If your symptoms worsen call your PCP, if no PCP go to Urgent Care Center or Emergency Room For 06/11 questions related to your inpatient stay or results of tests pending at discharge, please contact Dr. Krystian Lowry at Smoking is Dangerous to Your Health. Avoid second hand smoking Krystian Lowry MD Dec 20, 2016 15:33
== END 2016-12-20 12:30 | disposition home or self-care (01) | DRG 885 ==
LOC: NEPE 22:25 → NEDA 12-16 10:54 → H260 12-16 14:05
PROVIDERS: ADMIT Student in an Organized Health Care Education/Training Program; ATTEND Student in an Organized Health Care Education/Training Program
DX: F33.9 Major depressive disorder, recurrent, unspecified (principal); T39.012A Poisoning by aspirin, intentional self-harm, initial encounter; I10 Essential (primary) hypertension; K21.9 Gastro-esophageal reflux disease without esophagitis; E66.9 Obesity, unspecified; Z68.30 Body mass index [BMI] 30.0-30.9, adult; F17.210 Nicotine dependence, cigarettes, uncomplicated; F10.10 Alcohol abuse, uncomplicated; E78.5 Hyperlipidemia, unspecified
CPT/HCPCS: 36600; 71020; 80053; 80061; 80307; 82306; 82550; 82552; 82607; 82805; 83036; 84443; 84484; 85025; 93005; 99285